=== PATIENT | female | born 1970 | race African-American/Black ===

== ENCOUNTER 2017-02-10 11:22 | Inpatient (IN) | payer OTHER ==
[2017-02-10 12:24] VITALS: BMI 18.4
--- NOTE | 2017-02-10 16:35 | HP ---
CIWA Score - CIWA Score Nausea/Vomitin Muscle Tremors: 3 Anxiety: 3 Agitation: 2 Paroxysmal Sweats: 2 Orientation: 0-Oriented Tacttile Disturbances: 2-Mild Itch/Numbness/Burn Auditory Disturbances: 2-Mild Harshness/Frighten Visual Disturbances: 2-Mild Sensitivity Headache: 2-Mild CIWA-Ar Total Score: 21 Admission ROS BHS - HPI Chief Complaint: i am here to stop drinking alcohol and cocaine Allergies/Adverse Reactions: Allergies Allergy/AdvReac Type Severity Reaction Status Date / Time egg [Egg] Allergy Mild Rash Verified 02/10/17 16:21 History of Present Illness: this 46 ears old female with alcohol and cocaine dependence,seeking help for datox,last treatment [facility] 01/16/16 to 01/20/16 mmtp 60 mgs/day,last medicated to day multiples admissions in detox,keep relapsing multiple medical problem,hypercholesterolemia,hepatitis c,nicotine dependence, depression,derrell,bronchitis,arthritis of left knee Exam Limitations: No Limitations - Ebola screening Have you traveled outside of the country in the last 21 days: No Have you had contact with anyone from an Ebola affected area: No Have you been sick,other than usual withdrawal symptoms: No Do you have a fever: No - Review of Systems Constitutional: Loss of Appetite, Malaise, Night Sweats, Changes in sleep, Weakness, Unintentional Wgt. Loss EENT: reports: Nose Congestion Respiratory: reports: No Symptoms reported, Other (asthma bronchitis) Cardiac: reports: No Symptoms Reported GI: reports: Diarrhea, Nausea, Vomiting, Abdominal cramping : reports: No Symptoms Reported Musculoskeletal: reports: Back Pain, Muscle Pain Integumentary: reports: Dryness Neuro: reports: Headache, Tremors Endocrine: reports: No Symptoms Reported Hematology: reports: No Symptoms Reported Psychiatric: reports: Depressed Patient History - Patient Medical History Hx Anemia: No Hx Asthma: Yes (on albuterol inhaler) Hx Chronic Obstructive Pulmonary Disease (COPD): No Hx Cancer: No Hx Cardiac Disorders: No Hx Congestive Heart Failure: No Hx Hypertension: No Hx Hypercholesterolemia: No Hx Pacemaker: No HX Cerebrovascular Accident: No Hx Seizures: No Hx Dementia: No Hx Diabetes: No Hx Gastrointestinal Disorders: No Hx Liver Disease: No Hx Genitourinary Disorders: No Hx Sexually Transmitted Disorders: No Hx Renal Disease (ESRD): No Hx Thyroid Disease: No Hx Human Immunodeficiency Virus (HIV): No Hx Hepatitis C: Yes Hx Depression: Yes (no medication) Hx Suicide Attempt: No Hx Bipolar Disorder: No Hx Schizophrenia: No Other Medical History: no suicidal,no homicidal - Patient Surgical History Past Surgical History: Yes Hx Neurologic Surgery: No Hx Cataract Extraction: No Hx Cardiac Surgery: No Hx Lung Surgery: No Hx Breast Surgery: No Hx Breast Biopsy: No Hx Abdominal Surgery: No Hx Appendectomy: No Hx Cholecystectomy: No Hx Genitourinary Surgery: No Hx Section: No Hx Orthopedic Surgery: No Other Surgical History: BILATERAL INGUINAL HERNIA SX..1982 & 1988 Anesthesia Reaction: No - PPD History Previous Implant?: Yes Documented Results: Negative w/o proof Date: 01/18/16 PPD to be Administered?: Yes - Reproductive History Patient is a Female of Child Bearing Age (11 -55 yrs old): Yes Last Menstrual Period: 11/06/10 Patient : No - Smoking Cessation Smoking history: Current every day smoker Have you smoked in the past 12 months: Yes Aproximately how many cigarettes per day: 10 Hx Chewing Tobacco Use: No Initiated information on smoking cessation: Yes 'Breaking Loose' booklet given: 02/10/17 - Substance & Tx. History Hx Alcohol Use: Yes Hx Substance Use: Yes Substance Use Type: Alcohol, Cocaine Hx Substance Use Treatment: Yes ([facility] 01/16/16 to 01/20/16) - Substances Abused Alcohol Route: Oral Frequency: Daily Amount used: 6 cans of four loco Age of first use: 46 Date of Last Use: 02/10/17 Cocaine Route: Smoking Frequency: Daily Amount used: $200-300 Age of first use: 23 Date of Last Use: 02/09/17 Family Disease History - Family Disease History Family History: Denies Admission Physical Exam S - Vital Signs Vital Signs: Vital Signs - 24 hr 02/10/17 12:21 Temperature 96 F L Pulse Rate 54 L Respiratory 20 Rate Blood Pressure 128/76 - Physical General Appearance: Yes: Moderate Distress, Tremorous, Irritable, Sweating, Anxious HEENTM: Yes: Normocephalic, GREGORY, Pharynx Normal Respiratory: Yes: Lungs Clear, Normal Breath Sounds, No Respiratory Distress Neck: Yes: Within Normal Limits, Supple, Trachea in good position Breast: Yes: Breast Exam Deferred Cardiology: Yes: Within Normal Limits, Regular Rhythm, Regular Rate, S1, S2 Abdominal: Yes: Within Normal Limits, Normal Bowel Sounds, Non Tender, Flat, Soft Genitourinary: Yes: Within Normal Limits Back: Yes: Muscle Spasm Musculoskeletal: Yes: Back pain, Muscle Pain Extremities: Yes: Normal Inspection, Normal Range of Motion, Tremors 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, Fully Oriented, Alert, Motor Strength 5/5 Integumentary: Yes: Dry Lymphatic: Yes: Within Normal Limits - Diagnostic (1) Cocaine dependence Current Visit: No Status: Acute Qualifiers: Substance use status: uncomplicated Qualified Code(s): F14.20 - Cocaine dependence, uncomplicated (2) Alcohol dependence with uncomplicated withdrawal Current Visit: No Status: Chronic (3) Asthma Current Visit: No Status: Chronic Qualifiers: Asthma severity: mild intermittent Asthma complication type: uncomplicated Qualified Code(s): J45.20 - Mild intermittent asthma, uncomplicated (4) Hepatitis C Current Visit: No Status: Chronic Qualifiers: Viral hepatitis chronicity: chronic Hepatic coma status: without hepatic coma Qualified Code(s): B18.2 - Chronic viral hepatitis C (5) Methadone maintenance therapy patient Current Visit: No Status: Chronic Comment: 60mg HELP MMTP (6) Nicotine dependence Current Visit: No Status: Chronic Qualifiers: Nicotine product type: cigarettes Substance use status: uncomplicated Qualified Code(s): F17.210 - Nicotine dependence, cigarettes, uncomplicated (7) Weight loss Current Visit: Yes Status: Acute (8) Low back pain Current Visit: Yes Status: Acute (9) Arthritis of left knee Current Visit: Yes Status: Acute (10) Syncope Current Visit: Yes Status: Acute Cleared for Admission [facility] - Detox or Rehab [facility] Level of Care: Medically Managed Detox Regimen/Protocol: Librium [facility] Breath Alcohol Content Breath Alcohol Content: 0 Urine Pregancy Test - Result Urine Test Results: Negative- NO Line Present Urine Drug Screen - Results Drug Screen Negative: No Urine Drug Screen Results: MARIA VICTORIA-Cocaine, MTD-Methadone
[2017-02-10] MEDS ORDERED: MAGNESIUM CITRATE 300 ML BOTTLE PO PRN (16:49)
[2017-02-10] MEDS ORDERED: IBUPROFEN 400 MG TABLET (FP) PO PRN (16:49)
[2017-02-10] MEDS ORDERED: MENTHOL/PHENOL 1 EACH UD MM PRN (16:49)
[2017-02-10] MEDS ORDERED: diphenhydrAMINE HCL 50 MG CAPSULE PO PRN (16:49)
[2017-02-10] MEDS ORDERED: chlordiazePOXIDE HCL 25 MG CAPSULE PO PRN (16:49)
[2017-02-10] MEDS ORDERED: MAGNESIUM HYDROX 2400MG/30ML ORAL SUSPENSION 30 ML CUP PO PRN (16:49)
[2017-02-10] MEDS ORDERED: P-EPHED 60MG/TRIPROLIDI 2.5MG TABLET PO PRN (16:49)
[2017-02-10] MEDS ORDERED: hydrOXYzine PAMOATE 25 MG CAPSULE (FP) PO PRN (16:49)
[2017-02-10] MEDS ORDERED: guaiFENesin/D-METHORPHAN HB 10 ML UNIT-DOSE CUPS PO PRN (16:49)
[2017-02-10] MEDS ORDERED: ACETAMINOPHEN 325 MG TABLET (FP) PO PRN (16:49)
[2017-02-10] MEDS ORDERED: MAG HYDROX/AL HYDROX/SIMETH 30 ML UNIT-DOSE CUP PO PRN (16:49)
[2017-02-10] MEDS ORDERED: chlordiazePOXIDE HCL 25 MG CAPSULE PO ONE (16:49)
[2017-02-10] MEDS ORDERED: LOPERAMIDE HCL 2 MG CAPSULE PO PRN (16:49)
[2017-02-10] MEDS ORDERED: ALBUTEROL SO4 6.7 GM HFA INHALER IH PRN (17:00)
[2017-02-10] MEDS: NICOTINE 21 MG/24 HOURS TOPICAL PATCH TD SCH (18:41)
[2017-02-10 22:14] LABS: URINE APPEARANCE SLCLOUDY; URINE BILIRUBIN NEGATIVE (NEGATIVE); URINE BLOOD NEGATIVE (NEGATIVE); URINE COLOR AMBER; URINE GLUCOSE (UA) NEGATIVE (NEGATIVE); URINE KETONE NEGATIVE (NEGATIVE); URINE NITRITE NEGATIVE (NEGATIVE); URINE UROBILINOGEN NEGATIVE mg/dL (0.2-1.0)
[2017-02-10 22:19] LABS: URINE LEUK ESTERASE 1+ (NEGATIVE); URINE PROTEIN 1+ (NEGATIVE)
[2017-02-10 22:35] LABS: URINE BACTERIA MANY /hpf (NONE SEEN); URINE MUCUS MANY; URINE RBC 2 /hpf (0-3); URINE WBC 17 /hpf (3-5)
[2017-02-10] MEDS: THIAMINE HCL 100 MG TABLET (FP) PO SCH (22:55)
[2017-02-10] MEDS: chlordiazePOXIDE HCL 25 MG CAPSULE PO SCH (22:55)
[2017-02-11] MEDS: chlordiazePOXIDE HCL 25 MG CAPSULE PO SCH ×4 (07:07→22:42)
[2017-02-11] MEDS ORDERED: METHADONE HCL 40 MG DISPERSABLE TABLET PO SCH (08:30)
[2017-02-11] MEDS ORDERED: METHADONE PO SCH (09:45)
[2017-02-11] MEDS ORDERED: METHADONE HCL 40 MG DISPERSABLE TABLET ONE ×2 (09:46→10:59)
[2017-02-11 10:06] LABS: MCH 29.8 pg (25.7-33.7); MCHC 32.9 g/dl (32.0-36.0); MEAN CELL VOLUME 90.7 fl (80-96); MEAN PLT VOLUME 8.7 fl (7.5-11.1); PLATELET COUNT 231 K/MM3 (134-434); RDW 13.8 % (11.6-15.6); WHITE BLOOD COUNT 4.5 K/mm3 (4.0-10.0)
[2017-02-11 10:32] LABS: ALK PHOS 86 U/L (45-117); ANION GAP 6 (8-16); BILIRUBIN,TOTAL 0.5 mg/dL (0.2-1.0); CALCIUM 8.8 mg/dL (8.5-10.1); CO2 29 mmol/L (21-32); CREATININE 0.7 mg/dL (0.55-1.02); GLUCOSE,RANDOM 80 mg/dL (74-106); SGOT/AST 13 U/L (15-37); SGPT/ALT 19 U/L (12-78); TOT PROT 6.6 g/dl (6.4-8.2)
[2017-02-11] MEDS ORDERED: METHADONE HCL 10 MG TABLET ONE (11:00)
[2017-02-11] MEDS: METHADONE 20 MG, METHADONE 40 MG PO SCH (11:13)
[2017-02-11] MEDS: NICOTINE 21 MG/24 HOURS TOPICAL PATCH TD SCH (11:13)
[2017-02-11] MEDS: PRENATAL VITAMINS W/ FOLIC ACID TABLET (FP) PO SCH (11:13)
--- NOTE | 2017-02-11 14:39 | PN ---
[facility] CIWA - CIWA Score Nausea/Vomitin Muscle Tremors: 3 Anxiety: 2 Agitation: 3 Paroxysmal Sweats: 1-Minimal Palms Moist Orientation: 0-Oriented Tacttile Disturbances: 1-Very Mild Itch/Numbness Auditory Disturbances: 1-Very Mild Visual Disturbances: 1-Very Mild Sensitivity Headache: 2-Mild CIWA-Ar Total Score: 17 BHS Progress Note (SOAP) Subjective: ALERT IRRITABLE,ANXIOUS,INTERRUPTED SLEEP,TREMOR Objective: 02/11/17 14:37 Vital Signs Temperature 97.3 F L 02/11/17 10:12 Pulse Rate 70 02/11/17 10:12 Respiratory Rate 18 02/11/17 10:12 Blood Pressure 106/73 02/11/17 10:12 O2 Sat by Pulse Oximetry (%) EKG SINUS BRADYCARDIA 51/MIN 02/11/17 14:38 Laboratory Last Values WBC 4.5 K/mm3 (4.0-10.0) D 02/11/17 08:00 RBC 4.17 M/mm3 (3.60-5.2) D 02/11/17 08:00 Hgb 12.4 GM/dL (10.7-15.3) D 02/11/17 08:00 Hct 37.8 % (32.4-45.2) D 02/11/17 08:00 MCV 90.7 fl (80-96) 02/11/17 08:00 MCH 29.8 pg (25.7-33.7) 02/11/17 08:00 MCHC 32.9 g/dl (32.0-36.0) 02/11/17 08:00 RDW 13.8 % (11.6-15.6) 02/11/17 08:00 Plt Count 231 K/MM3 (134-434) 02/11/17 08:00 MPV 8.7 fl (7.5-11.1) D 02/11/17 08:00 Sodium 141 mmol/L (136-145) 02/11/17 08:00 Potassium 3.9 mmol/L (3.5-5.1) 02/11/17 08:00 Chloride 106 mmol/L (98-107) 02/11/17 08:00 Carbon Dioxide 29 mmol/L (21-32) 02/11/17 08:00 Anion Gap 6 (8-16) L 02/11/17 08:00 BUN 20 mg/dL (7-18) H 02/11/17 08:00 Creatinine 0.7 mg/dL (0.55-1.02) 02/11/17 08:00 Creat Clearance w eGFR > 60 (>60) 02/11/17 08:00 Random Glucose 80 mg/dL (74-106) 02/11/17 08:00 Calcium 8.8 mg/dL (8.5-10.1) 02/11/17 08:00 Total Bilirubin 0.5 mg/dL (0.2-1.0) D 02/11/17 08:00 AST 13 U/L (15-37) L 02/11/17 08:00 ALT 19 U/L (12-78) 02/11/17 08:00 Alkaline Phosphatase 86 U/L (45-117) D 02/11/17 08:00 Total Protein 6.6 g/dl (6.4-8.2) 02/11/17 08:00 Albumin 3.0 g/dl (3.4-5.0) L 02/11/17 08:00 Urine Color Nohemy 02/10/17 21:45 Urine Appearance Slcloudy 02/10/17 21:45 Urine pH 5.0 (5.0-8.0) 02/10/17 21:45 Ur Specific [place] >= 1.030 (1.005-1.025) H 02/10/17 21:45 Urine Protein 1+ (NEGATIVE) H 02/10/17 21:45 Urine Glucose (UA) Negative (NEGATIVE) 02/10/17 21:45 Urine Ketones Negative (NEGATIVE) 02/10/17 21:45 Urine Blood Negative (NEGATIVE) 02/10/17 21:45 Urine Nitrite Negative (NEGATIVE) 02/10/17 21:45 Urine Bilirubin Negative (NEGATIVE) 02/10/17 21:45 Urine Urobilinogen Negative mg/dL (0.2-1.0) 02/10/17 21:45 Ur Leukocyte Esterase 1+ (NEGATIVE) H 02/10/17 21:45 Urine RBC 2 /hpf (0-3) 02/10/17 21:45 Urine WBC 17 /hpf (3-5) 02/10/17 21:45 Ur Epithelial Cells Rare /hpf (FEW) 02/10/17 21:45 Urine Bacteria Many /hpf (NONE SEEN) 02/10/17 21:45 Urine Mucus Many 02/10/17 21:45 RPR Titer Nonreactive (NONREACTIVE) 02/11/17 08:00 Assessment: 02/11/17 14:38 WITHDRAWAL SYMPTOM Plan: CONTINUE DETOX
--- NOTE | 2017-02-11 15:54 | CONSULT ---
[facility] Psychiatric Consult - Data Date of interview: 02/11/17 Admission source: [facility] Identifying data: Another admission to [facility] for this 46 y/o AA female seeking detox treatment on for alcohol,heroin and cocaine dependence.Patient is ,a mother of five (variable account),domiciled, unemployed,deprived of any official means of financial support and supported on " hustling " as per self-report. Substance Abuse History: Discussed with patient.Ms June confirms all details of this [facility] report : Smoking Cessation. Smoking history: Current every day smoker. Have you smoked in the past 12 months: Yes. Aproximately how many cigarettes per day: 10. Hx Chewing Tobacco Use: No. Initiated information on smoking cessation: Yes. 'Breaking Loose' booklet given: 02/10/17. - Substance & Tx. History. Hx Alcohol Use: Yes. Hx Substance Use: Yes. Substance Use Type : Alcohol, Cocaine. Hx Substance Use Treatment: Yes ([facility] 01/16/16 to 01/20/16) . - Substances Abused. Alcohol. Route: Oral. Frequency: Daily. Amount used: 6 cans of four loco. Age of first use: 46. Date of Last Use: 02/10/17. Cocaine. Route: Smoking. Frequency: Daily. Amount used: $200-300. Age of first use: 23. Date of Last Use: 02/09/17 Medical History: Significant for COPD,bronchial asthma and hepatitis C.Noted history of surgery for bilateral inguinal hernia (1982 + 1988). Psychiatric History: Unreliable and versatile historian.In this interview,the patient denies past history of psychiatric hospitalizations.Last year however, she had reported to the same group underwriter that she " was committed to [facility],years ago,for erratic behavior in the streets described as flashing people ".It appears that Ms June was in a state of intoxication at the time.Never rehospitalized since the incident.No OPD care.Patient endorses one suicide attempt via overdose with pills (more than 10 years ago).She is still on methadone maintenance (60 mg/day). Physical/Sexual Abuse/Trauma History: Patient denies history of abuse. Additional Comment: Urine Drug Screen Results: MARIA VICTORIA-Cocaine, MTD-Methadone.Noted. Mental Status Exam - Mental Status Exam Alert and Oriented to: Time, Place, Person Cognitive Function: Grossly Intact Patient Appearance: Unkempt, Disheveled Mood: Nervous, Withdrawn Affect: Mood Congruent Patient Behavior: Sedated (moderately), Fatigued, Cooperative Speech Pattern: Delayed, Slurred Voice Loudness: Moderately Soft/Quiet Thought Process: Goal Oriented Thought Disorder: Not Present Hallucinations: Denies Suicidal Ideation: Denies Homicidal Ideation: Denies Insight/Judgement: Poor Sleep: Fair Appetite: Good Muscle strength/Tone: Normal Gait/Station: Normal Psychiatric Findings - Problem List ([place] 1, 2,3) (1) Alcohol dependence with uncomplicated withdrawal Current Visit: Yes Status: Chronic (2) Opioid dependence on agonist therapy Current Visit: Yes Status: Acute (3) Cocaine dependence Current Visit: Yes Status: Acute Qualifiers: Substance use status: uncomplicated Qualified Code(s): F14.20 - Cocaine dependence, uncomplicated (4) Nicotine dependence Current Visit: Yes Status: Acute Qualifiers: Nicotine product type: cigarettes Substance use status: uncomplicated Qualified Code(s): F17.210 - Nicotine dependence, cigarettes, uncomplicated (5) Substance induced mood disorder Current Visit: Yes Status: Acute (6) Arthritis of left knee Current Visit: Yes Status: Chronic (7) Low back pain Current Visit: Yes Status: Chronic (8) Weight loss Current Visit: Yes Status: Chronic (9) Asthma Current Visit: Yes Status: Chronic Qualifiers: Asthma severity: mild intermittent Asthma complication type: uncomplicated Qualified Code(s): J45.20 - Mild intermittent asthma, uncomplicated (10) Hepatitis C Current Visit: No Status: Chronic Qualifiers: Viral hepatitis chronicity: chronic Hepatic coma status: without hepatic coma Qualified Code(s): B18.2 - Chronic viral hepatitis C - Initial Treatment Plan Initial Treatment Plan: Psychoeducation.Detoxification.Observation.
[2017-02-11] MEDS: THIAMINE HCL 100 MG TABLET (FP) PO SCH (22:42)
[2017-02-12] MEDS ORDERED: METHADONE HCL 10 MG TABLET ONE (05:30)
[2017-02-12] MEDS ORDERED: METHADONE HCL 40 MG DISPERSABLE TABLET ONE (05:30)
[2017-02-12] MEDS: chlordiazePOXIDE HCL 25 MG CAPSULE PO SCH ×3 (06:37→17:56)
[2017-02-12] MEDS: METHADONE 20 MG, METHADONE 40 MG PO SCH (06:37)
[2017-02-12] MEDS: PRENATAL VITAMINS W/ FOLIC ACID TABLET (FP) PO SCH (10:40)
[2017-02-12] MEDS: NICOTINE 21 MG/24 HOURS TOPICAL PATCH TD SCH (10:40)
--- NOTE | 2017-02-12 14:12 | PN ---
S CIWA - CIWA Score Nausea/Vomitin Muscle Tremors: 3 Anxiety: 3 Agitation: 2 Paroxysmal Sweats: 1-Minimal Palms Moist Orientation: 0-Oriented Tacttile Disturbances: 1-Very Mild Itch/Numbness Auditory Disturbances: 1-Very Mild Visual Disturbances: 1-Very Mild Sensitivity Headache: 2-Mild CIWA-Ar Total Score: 17 S Progress Note (SOAP) Subjective: ALERT,IRRITABLE,ANXIOUS,INTERRUPTED SLEEP,TREMOR Objective: 02/12/17 14:09 Vital Signs Temperature 97.2 F L 02/12/17 10:47 Pulse Rate 62 02/12/17 10:47 Respiratory Rate 16 02/12/17 10:47 Blood Pressure 99/67 02/12/17 10:47 O2 Sat by Pulse Oximetry (%) Laboratory Last Values WBC 4.5 K/mm3 (4.0-10.0) D 02/11/17 08:00 RBC 4.17 M/mm3 (3.60-5.2) D 02/11/17 08:00 Hgb 12.4 GM/dL (10.7-15.3) D 02/11/17 08:00 Hct 37.8 % (32.4-45.2) D 02/11/17 08:00 MCV 90.7 fl (80-96) 02/11/17 08:00 MCH 29.8 pg (25.7-33.7) 02/11/17 08:00 MCHC 32.9 g/dl (32.0-36.0) 02/11/17 08:00 RDW 13.8 % (11.6-15.6) 02/11/17 08:00 Plt Count 231 K/MM3 (134-434) 02/11/17 08:00 MPV 8.7 fl (7.5-11.1) D 02/11/17 08:00 Sodium 141 mmol/L (136-145) 02/11/17 08:00 Potassium 3.9 mmol/L (3.5-5.1) 02/11/17 08:00 Chloride 106 mmol/L (98-107) 02/11/17 08:00 Carbon Dioxide 29 mmol/L (21-32) 02/11/17 08:00 Anion Gap 6 (8-16) L 02/11/17 08:00 BUN 20 mg/dL (7-18) H 02/11/17 08:00 Creatinine 0.7 mg/dL (0.55-1.02) 02/11/17 08:00 Creat Clearance w eGFR > 60 (>60) 02/11/17 08:00 Random Glucose 80 mg/dL (74-106) 02/11/17 08:00 Calcium 8.8 mg/dL (8.5-10.1) 02/11/17 08:00 Total Bilirubin 0.5 mg/dL (0.2-1.0) D 02/11/17 08:00 AST 13 U/L (15-37) L 02/11/17 08:00 ALT 19 U/L (12-78) 02/11/17 08:00 Alkaline Phosphatase 86 U/L (45-117) D 02/11/17 08:00 Total Protein 6.6 g/dl (6.4-8.2) 02/11/17 08:00 Albumin 3.0 g/dl (3.4-5.0) L 02/11/17 08:00 Urine Color Nohemy 02/10/17 21:45 Urine Appearance Slcloudy 02/10/17 21:45 Urine pH 5.0 (5.0-8.0) 02/10/17 21:45 Ur Specific [place] >= 1.030 (1.005-1.025) H 02/10/17 21:45 Urine Protein 1+ (NEGATIVE) H 02/10/17 21:45 Urine Glucose (UA) Negative (NEGATIVE) 02/10/17 21:45 Urine Ketones Negative (NEGATIVE) 02/10/17 21:45 Urine Blood Negative (NEGATIVE) 02/10/17 21:45 Urine Nitrite Negative (NEGATIVE) 02/10/17 21:45 Urine Bilirubin Negative (NEGATIVE) 02/10/17 21:45 Urine Urobilinogen Negative mg/dL (0.2-1.0) 02/10/17 21:45 Ur Leukocyte Esterase 1+ (NEGATIVE) H 02/10/17 21:45 Urine RBC 2 /hpf (0-3) 02/10/17 21:45 Urine WBC 17 /hpf (3-5) 02/10/17 21:45 Ur Epithelial Cells Rare /hpf (FEW) 02/10/17 21:45 Urine Bacteria Many /hpf (NONE SEEN) 02/10/17 21:45 Urine Mucus Many 02/10/17 21:45 RPR Titer Nonreactive (NONREACTIVE) 02/11/17 08:00 Assessment: 02/12/17 14:11 WITHDRAWAL SYMPTOM Plan: CONTINUE DETOX
[2017-02-12] MEDS: chlordiazePOXIDE 5 MG CAPSULE PO SCH (22:50)
[2017-02-12] MEDS: THIAMINE HCL 100 MG TABLET (FP) PO SCH (22:50)
[2017-02-13] MEDS ORDERED: METHADONE HCL 40 MG DISPERSABLE TABLET ONE (05:03)
[2017-02-13] MEDS ORDERED: METHADONE HCL 10 MG TABLET ONE (05:03)
[2017-02-13] MEDS: chlordiazePOXIDE 5 MG CAPSULE PO SCH ×3 (05:31→17:51)
[2017-02-13] MEDS: METHADONE 20 MG, METHADONE 40 MG PO SCH (05:31)
[2017-02-13] MEDS: PRENATAL VITAMINS W/ FOLIC ACID TABLET (FP) PO SCH (10:54)
[2017-02-13] MEDS: NICOTINE 21 MG/24 HOURS TOPICAL PATCH TD SCH (10:55)
--- NOTE | 2017-02-13 11:33 | PN ---
BHS Progress Note (SOAP) Subjective: feeling better interrupted sleep little anxious Objective: 02/13/17 11:32 Vital Signs Temperature 97.2 F L 02/13/17 10:00 Pulse Rate 76 02/13/17 10:00 Respiratory Rate 19 02/13/17 10:00 Blood Pressure 119/76 02/13/17 10:00 O2 Sat by Pulse Oximetry (%) awake/alert ambulating no acute distress Assessment: 02/13/17 11:33 withdrawal sx Plan: continue detox increase fluids d/c in am
[2017-02-13] MEDS: THIAMINE HCL 100 MG TABLET (FP) PO SCH (22:29)
[2017-02-13] MEDS: chlordiazePOXIDE HCL 10 MG CAPSULE PO SCH (22:29)
[2017-02-14] MEDS ORDERED: METHADONE HCL 10 MG TABLET ONE (04:23)
[2017-02-14] MEDS ORDERED: METHADONE HCL 40 MG DISPERSABLE TABLET ONE (04:23)
[2017-02-14] MEDS: METHADONE 20 MG, METHADONE 40 MG PO SCH (06:01)
[2017-02-14] MEDS: chlordiazePOXIDE HCL 10 MG CAPSULE PO SCH ×2 (06:03→10:54)
--- NOTE | 2017-02-14 09:06 | DS ---
[facility] Detox Discharge Summary Admission Date: 02/10/17 Discharge Date: 02/14/17 - History Present History: Alcohol Dependence, Cannabis Dependence, Cocaine Dependence, MMTP - Physical Exam Results Vital Signs: Vital Signs Temperature 96.4 F L 02/14/17 06:00 Pulse Rate 64 02/14/17 06:00 Respiratory Rate 16 02/14/17 06:00 Blood Pressure 105/74 02/14/17 06:00 O2 Sat by Pulse Oximetry (%) - Treatment Hospital Course: Detox Protocol Followed, Detoxed Safely, Responded well, Discharged Condition Good, Rehab Referral Accepted - Medication Discharge Medications: Ambulatory Orders NK [No Known Home Medication] 02/10/17 - Diagnosis (1) Cocaine dependence Current Visit: Yes Status: Chronic Qualifiers: Substance use status: uncomplicated Qualified Code(s): F14.20 - Cocaine dependence, uncomplicated (2) Nicotine dependence Current Visit: Yes Status: Chronic Qualifiers: Nicotine product type: cigarettes Substance use status: uncomplicated Qualified Code(s): F17.210 - Nicotine dependence, cigarettes, uncomplicated (3) Opioid dependence on agonist therapy Current Visit: Yes Status: Acute (4) Substance induced mood disorder Current Visit: Yes Status: Chronic (5) Syncope Current Visit: Yes Status: Inactive (6) Alcohol dependence with uncomplicated withdrawal Current Visit: Yes Status: Chronic (7) Arthritis of left knee Current Visit: Yes Status: Chronic (8) Asthma Current Visit: Yes Status: Chronic Qualifiers: Asthma severity: mild intermittent Asthma complication type: uncomplicated Qualified Code(s): J45.20 - Mild intermittent asthma, uncomplicated (9) Low back pain Current Visit: Yes Status: Chronic Qualifiers: Back pain laterality: unspecified (10) Weight loss Current Visit: Yes Status: Chronic (11) Cannabis dependence Current Visit: No Status: Chronic (12) Hepatitis C Current Visit: No Status: Chronic Qualifiers: Viral hepatitis chronicity: chronic Hepatic coma status: without hepatic coma Qualified Code(s): B18.2 - Chronic viral hepatitis C (13) Methadone maintenance therapy patient Current Visit: Yes Status: Chronic (14) PCP dependence Current Visit: Yes Status: Chronic - AMA Did Patient Leave Against Medical Advice: No
[2017-02-14] MEDS: NICOTINE 21 MG/24 HOURS TOPICAL PATCH TD SCH (10:54)
[2017-02-14] MEDS: PRENATAL VITAMINS W/ FOLIC ACID TABLET (FP) PO SCH (10:54)
[2017-02-14 14:22] VITALS: BP 100/69; PULSE 73; TEMP 98.1
--- NOTE | 2017-02-15 14:55 | EKG ---
Test Reason : Blood Pressure : / mmHG Vent. Rate : 051 BPM Atrial Rate : 051 BPM P-R Int : 128 ms QRS Dur : 076 ms QT Int : 510 ms P-R-T Axes : -18 083 077 degrees QTc Int : 470 ms SINUS BRADYCARDIA WITH PREMATURE ATRIAL COMPLEXES SEPTAL INFARCT , AGE UNDETERMINED ABNORMAL ECG NO PREVIOUS ECGS AVAILABLE Confirmed by KILEY REYNOLDS MD ([id number]) on 02/15/2017 2:54:54 PM Referred By: Micah Ponce Confirmed By:KILEY REYNOLDS MD
== END 2017-02-14 02:10 | disposition other institution (70) | DRG 773 ==
LOC: YASAS 11:22 → Y6N 17:03
PROVIDERS: ADMIT Internal Medicine; ATTEND Internal Medicine
PROC: HZ2ZZZZ Detoxification Services for Substance Abuse Treatment (ICD-10-PCS; principal; 2017-02-10)
DX: F10.230 Alcohol dependence with withdrawal, uncomplicated (principal); F11.20 Opioid dependence, uncomplicated; F14.20 Cocaine dependence, uncomplicated; F17.210 Nicotine dependence, cigarettes, uncomplicated; F19.24 Other psychoactive substance dependence with psychoactive substance-induced mood disorder; B18.2 Chronic viral hepatitis C; J45.20 Mild intermittent asthma, uncomplicated; M13.862 Other specified arthritis, left knee; R00.1 Bradycardia, unspecified; Z86.79 Personal history of other diseases of the circulatory system; Z87.898 Personal history of other specified conditions
CPT/HCPCS: 36415; 80053; 81003; 81015; 85027; 86593; 93005; 93010

== ENCOUNTER 2017-02-14 14:32 | Inpatient (IN) | payer OTHER ==
[2017-02-14] MEDS ORDERED: PNEUMOC 13-VAL CONJ-DIP CRM/PF 0.5 ML DISP.SYRIN IM ONE (14:56)
[2017-02-14 14:58] VITALS: BMI 21.0
[2017-02-14] MEDS ORDERED: MENTHOL/PHENOL 1 EACH UD MM PRN (15:07)
[2017-02-14] MEDS ORDERED: LOPERAMIDE HCL 2 MG CAPSULE PO PRN (15:07)
[2017-02-14] MEDS ORDERED: MAGNESIUM CITRATE 300 ML BOTTLE PO PRN (15:07)
[2017-02-14] MEDS ORDERED: IBUPROFEN 400 MG TABLET (FP) PO PRN (15:07)
[2017-02-14] MEDS ORDERED: P-EPHED 60MG/TRIPROLIDI 2.5MG TABLET PO PRN (15:07)
[2017-02-14] MEDS ORDERED: MAG HYDROX/AL HYDROX/SIMETH 30 ML UNIT-DOSE CUP PO PRN (15:07)
[2017-02-14] MEDS ORDERED: ACETAMINOPHEN 325 MG TABLET (FP) PO PRN (15:07)
[2017-02-14] MEDS ORDERED: MAGNESIUM HYDROX 2400MG/30ML ORAL SUSPENSION 30 ML CUP PO PRN (15:07)
[2017-02-14] MEDS ORDERED: guaiFENesin/D-METHORPHAN HB 10 ML UNIT-DOSE CUPS PO PRN (15:07)
[2017-02-14] MEDS ORDERED: NICOTINE POLACRILEX 2 MG GUM BUC PRN (15:07)
--- NOTE | 2017-02-14 15:10 | HP ---
[facility] Re[facility] Assess/Revision - Admission History Admitted to Rehab from: [facility] [place] Date of Admission to Rehab: 02/14/17 - Vital signs Vital Signs: Vital Signs Period Temp Pulse Resp BP Sys/[place] Pulse Ox Last 24 Hr 97.5 F-97.5 F 65-65 18-18 104-104/69-69 - Findings Detox History & Physical reviewed: Yes Concur with findings: Yes
[2017-02-14] MEDS: diphenhydrAMINE HCL 50 MG CAPSULE PO PRN (21:30)
[2017-02-14] MEDS: THIAMINE HCL 100 MG TABLET (FP) PO SCH (21:30)
[2017-02-15] MEDS ORDERED: METHADONE HCL 10 MG TABLET ONE (05:59)
[2017-02-15] MEDS ORDERED: METHADONE HCL 40 MG DISPERSABLE TABLET ONE (05:59)
[2017-02-15] MEDS ORDERED: METHADONE HCL 10 MG TABLET PO SCH (06:00)
[2017-02-15] MEDS: METHADONE 40 MG, METHADONE 20 MG PO SCH (06:47)
[2017-02-15] MEDS: NICOTINE 21 MG/24 HOURS TOPICAL PATCH TD SCH (10:04)
[2017-02-15] MEDS: PRENATAL VITAMINS W/ FOLIC ACID TABLET (FP) PO SCH (10:05)
[2017-02-15] MEDS ORDERED: PNEUMOCOCCAL 23 VACCINE 0.5 ML VIAL IM ONE (12:00)
--- NOTE | 2017-02-15 14:28 | HP ---
Psychiatrist Admission - Data Date of interview: 02/15/17 Admission source: [address] [place] [address] Identifying data: This is the first admission to [address] [place] [address] for this 46 years old AA female mother of 5(children reside with the patient's family members).She is undomiciled,no financial support. Medical History: Significant for BA,Hep C. Psychiatric History: Patient reports depressed mood since very young age.One psychiatric hospitalization many years back due to errratic behavior on street.patient has recollection of the details,most probably as a consequences of drug use. Also reports one suicidal attempt about 10 years ago.No psychiatric follow up,currently on MMTP(60 mg daily).Reports sleeping difficulties on off,responded well to Seroquel in the past . Physical/Sexual Abuse/Trauma History: denies Vital Signs: Vital Signs - 24 hr 02/14/17 02/14/17 02/15/17 14:41 14:56 00:30 Temperature 97.5 F L 97.5 F L Pulse Rate 65 65 Respiratory 18 18 16 Rate Blood Pressure 104/69 104/69 02/15/17 07:09 Temperature 97.4 F L Pulse Rate 64 Respiratory 18 Rate Blood Pressure 115/68 Allergies/Adverse Reactions: Allergies Allergy/AdvReac Type Severity Reaction Status Date / Time egg [Egg] Allergy Mild Rash Verified 02/10/17 16:21 Date of last physical exam: 02/10/17 Concur with the findings of this exam: Yes - Substance Abuse/Tx History Hx Alcohol Use: Yes (drinking since 13 to,2 bottles of rum,beer six 24 oz can) Hx Substance Use: Yes (cocaine since 18 yo.$200,PCP since 24 yo,1 bag daily, cocaine since 18 yo,) Substance Use Type: Alcohol, Cocaine (cocaine $ 200 daily), Heroin (since 25 yo, 2 bags daily), Marijuana (marijuana since 13 yo) Hx Substance Use Treatment: Yes (longest abstinence 6 years) - Admission Criteria Previous failed treatment: Yes Poor recovery environment: Yes Comorbidities: Yes Lacks judgement: Yes Mental Status Exam - Mental Status Exam Alert and Oriented to: Time, Place, Person Cognitive Function: Grossly Intact Patient Appearance: Well Groomed Mood: Anxious Affect: Mood Congruent, Labile Patient Behavior: Cooperative Speech Pattern: Clear Voice Loudness: Normal Thought Process: Goal Oriented Thought Disorder: Not Present Hallucinations: Denies Suicidal Ideation: Denies Insight/Judgement: Fair Sleep: Fair Appetite: Good Muscle strength/Tone: Normal Gait/Station: Normal Psychiatric Findings - Problem List ([place] 1, 2,3) (1) Opioid dependence on agonist therapy Current Visit: Yes Status: Chronic (2) Arthritis of left knee Current Visit: Yes Status: Chronic (3) Asthma Current Visit: Yes Status: Chronic Qualifiers: Asthma severity: mild intermittent Asthma complication type: uncomplicated Qualified Code(s): J45.20 - Mild intermittent asthma, uncomplicated (4) Cannabis dependence Current Visit: Yes Status: Chronic (5) Cocaine dependence Current Visit: Yes Status: Chronic Qualifiers: Substance use status: uncomplicated Qualified Code(s): F14.20 - Cocaine dependence, uncomplicated (6) Hepatitis C Current Visit: Yes Status: Chronic Qualifiers: Viral hepatitis chronicity: chronic Hepatic coma status: without hepatic coma Qualified Code(s): B18.2 - Chronic viral hepatitis C (7) Low back pain Current Visit: Yes Status: Chronic Qualifiers: Back pain laterality: unspecified (8) Nicotine dependence Current Visit: No Status: Chronic Qualifiers: Nicotine product type: cigarettes Substance use status: uncomplicated Qualified Code(s): F17.210 - Nicotine dependence, cigarettes, uncomplicated (9) PCP dependence Current Visit: Yes Status: Chronic (10) Substance induced mood disorder Current Visit: Yes Status: Chronic (11) Alcohol dependence Current Visit: Yes Status: Chronic - Initial Treatment Plan Initial Treatment Plan: Seroquel 50 mg po hs.Will monitor progress.
[2017-02-15] MEDS: GABAPENTIN 100 MG CAPSULE (FP) PO SCH ×2 (15:56→21:10)
[2017-02-15] MEDS: THIAMINE HCL 100 MG TABLET (FP) PO SCH (21:10)
[2017-02-15] MEDS: QUEtiapine FUMARATE 50 MG TABLET PO SCH (21:11)
[2017-02-16] MEDS ORDERED: METHADONE HCL 10 MG TABLET ONE (03:22)
[2017-02-16] MEDS ORDERED: METHADONE HCL 40 MG DISPERSABLE TABLET ONE (03:23)
[2017-02-16] MEDS: METHADONE 40 MG, METHADONE 20 MG PO SCH (06:21)
[2017-02-16] MEDS: GABAPENTIN 100 MG CAPSULE (FP) PO SCH ×3 (06:22→21:15)
[2017-02-16] MEDS: IBUPROFEN 400 MG TABLET (FP) PO PRN (09:59)
[2017-02-16] MEDS: PRENATAL VITAMINS W/ FOLIC ACID TABLET (FP) PO SCH (10:00)
[2017-02-16] MEDS: NICOTINE 21 MG/24 HOURS TOPICAL PATCH TD SCH (10:00)
[2017-02-16] MEDS: QUEtiapine FUMARATE 50 MG TABLET PO SCH (21:15)
[2017-02-16] MEDS: THIAMINE HCL 100 MG TABLET (FP) PO SCH (21:16)
[2017-02-17] MEDS ORDERED: METHADONE HCL 40 MG DISPERSABLE TABLET ONE (05:45)
[2017-02-17] MEDS ORDERED: METHADONE HCL 10 MG TABLET ONE (05:45)
[2017-02-17] MEDS: METHADONE 40 MG, METHADONE 20 MG PO SCH (06:49)
[2017-02-17] MEDS: GABAPENTIN 100 MG CAPSULE (FP) PO SCH ×3 (06:49→21:22)
[2017-02-17] MEDS: NICOTINE 21 MG/24 HOURS TOPICAL PATCH TD SCH (10:15)
[2017-02-17] MEDS: PRENATAL VITAMINS W/ FOLIC ACID TABLET (FP) PO SCH (10:16)
[2017-02-17] MEDS: THIAMINE HCL 100 MG TABLET (FP) PO SCH (21:22)
[2017-02-17] MEDS: QUEtiapine FUMARATE 50 MG TABLET PO SCH (21:22)
[2017-02-17] MEDS: IBUPROFEN 400 MG TABLET (FP) PO PRN (21:23)
[2017-02-18] MEDS ORDERED: METHADONE HCL 10 MG TABLET ONE (03:12)
[2017-02-18] MEDS ORDERED: METHADONE HCL 40 MG DISPERSABLE TABLET ONE (03:12)
[2017-02-18] MEDS: METHADONE 40 MG, METHADONE 20 MG PO SCH (06:28)
[2017-02-18] MEDS: GABAPENTIN 100 MG CAPSULE (FP) PO SCH ×3 (06:29→21:13)
[2017-02-18] MEDS: NICOTINE 21 MG/24 HOURS TOPICAL PATCH TD SCH (09:54)
[2017-02-18] MEDS: PRENATAL VITAMINS W/ FOLIC ACID TABLET (FP) PO SCH (09:55)
[2017-02-18] MEDS: IBUPROFEN 400 MG TABLET (FP) PO PRN ×2 (09:56→21:15)
[2017-02-18] MEDS: THIAMINE HCL 100 MG TABLET (FP) PO SCH (21:14)
[2017-02-18] MEDS: QUEtiapine FUMARATE 50 MG TABLET PO SCH (21:14)
[2017-02-19] MEDS ORDERED: METHADONE HCL 40 MG DISPERSABLE TABLET ONE (03:07)
[2017-02-19] MEDS ORDERED: METHADONE HCL 10 MG TABLET ONE (03:07)
[2017-02-19] MEDS: METHADONE 40 MG, METHADONE 20 MG PO SCH (06:39)
[2017-02-19] MEDS: GABAPENTIN 100 MG CAPSULE (FP) PO SCH ×3 (06:39→21:12)
[2017-02-19] MEDS: PRENATAL VITAMINS W/ FOLIC ACID TABLET (FP) PO SCH (09:40)
[2017-02-19] MEDS: NICOTINE 21 MG/24 HOURS TOPICAL PATCH TD SCH (09:40)
[2017-02-19] MEDS: THIAMINE HCL 100 MG TABLET (FP) PO SCH (21:12)
[2017-02-19] MEDS: QUEtiapine FUMARATE 50 MG TABLET PO SCH (21:12)
[2017-02-19] MEDS: IBUPROFEN 400 MG TABLET (FP) PO PRN (21:13)
[2017-02-20] MEDS ORDERED: METHADONE HCL 40 MG DISPERSABLE TABLET ONE (03:14)
[2017-02-20] MEDS ORDERED: METHADONE HCL 10 MG TABLET ONE (03:14)
[2017-02-20] MEDS: METHADONE 40 MG, METHADONE 20 MG PO SCH (06:39)
[2017-02-20] MEDS: GABAPENTIN 100 MG CAPSULE (FP) PO SCH ×3 (06:40→21:19)
[2017-02-20] MEDS: NICOTINE 21 MG/24 HOURS TOPICAL PATCH TD SCH (10:09)
[2017-02-20] MEDS: PRENATAL VITAMINS W/ FOLIC ACID TABLET (FP) PO SCH (10:09)
[2017-02-20] MEDS: IBUPROFEN 400 MG TABLET (FP) PO PRN (13:52)
[2017-02-20] MEDS ORDERED: QUEtiapine FUMARATE 25 MG TABLET (FP) ONE (19:39)
[2017-02-20] MEDS: QUEtiapine FUMARATE 50 MG TABLET PO SCH (21:19)
[2017-02-20] MEDS: THIAMINE HCL 100 MG TABLET (FP) PO SCH (21:19)
[2017-02-20] MEDS: diphenhydrAMINE HCL 50 MG CAPSULE PO PRN (21:19)
[2017-02-21] MEDS ORDERED: METHADONE HCL 10 MG TABLET ONE (05:51)
[2017-02-21] MEDS ORDERED: METHADONE HCL 40 MG DISPERSABLE TABLET ONE (05:51)
[2017-02-21] MEDS: GABAPENTIN 100 MG CAPSULE (FP) PO SCH ×3 (06:04→21:25)
[2017-02-21] MEDS: METHADONE 40 MG, METHADONE 20 MG PO SCH (06:04)
[2017-02-21] MEDS: NICOTINE 21 MG/24 HOURS TOPICAL PATCH TD SCH (10:00)
[2017-02-21] MEDS: PRENATAL VITAMINS W/ FOLIC ACID TABLET (FP) PO SCH (10:01)
[2017-02-21] MEDS: THIAMINE HCL 100 MG TABLET (FP) PO SCH (21:25)
[2017-02-21] MEDS: QUEtiapine FUMARATE 50 MG TABLET PO SCH (21:25)
[2017-02-21] MEDS: diphenhydrAMINE HCL 50 MG CAPSULE PO PRN (21:25)
[2017-02-22] MEDS ORDERED: METHADONE HCL 10 MG TABLET PO SCH (06:00)
[2017-02-22] MEDS ORDERED: METHADONE HCL 10 MG TABLET ONE (06:07)
[2017-02-22] MEDS ORDERED: METHADONE HCL 40 MG DISPERSABLE TABLET ONE (06:07)
[2017-02-22] MEDS: METHADONE 40 MG, METHADONE 20 MG PO SCH (06:37)
[2017-02-22] MEDS: GABAPENTIN 100 MG CAPSULE (FP) PO SCH ×3 (06:38→21:21)
[2017-02-22] MEDS: PRENATAL VITAMINS W/ FOLIC ACID TABLET (FP) PO SCH (09:49)
[2017-02-22] MEDS: NICOTINE 21 MG/24 HOURS TOPICAL PATCH TD SCH (09:49)
[2017-02-22] MEDS: QUEtiapine FUMARATE 50 MG TABLET PO SCH (21:21)
[2017-02-22] MEDS: THIAMINE HCL 100 MG TABLET (FP) PO SCH (21:21)
[2017-02-22] MEDS: diphenhydrAMINE HCL 50 MG CAPSULE PO PRN (21:21)
[2017-02-22] MEDS: IBUPROFEN 400 MG TABLET (FP) PO PRN (21:22)
[2017-02-23] MEDS ORDERED: METHADONE HCL 40 MG DISPERSABLE TABLET ONE (03:12)
[2017-02-23] MEDS ORDERED: METHADONE HCL 10 MG TABLET ONE (03:12)
[2017-02-23] MEDS: METHADONE 40 MG, METHADONE 20 MG PO SCH (06:27)
[2017-02-23] MEDS: GABAPENTIN 100 MG CAPSULE (FP) PO SCH ×3 (06:27→21:21)
[2017-02-23] MEDS: PRENATAL VITAMINS W/ FOLIC ACID TABLET (FP) PO SCH (09:39)
[2017-02-23] MEDS: NICOTINE 21 MG/24 HOURS TOPICAL PATCH TD SCH (09:39)
[2017-02-23] MEDS: THIAMINE HCL 100 MG TABLET (FP) PO SCH (21:21)
[2017-02-23] MEDS: diphenhydrAMINE HCL 50 MG CAPSULE PO PRN (21:21)
[2017-02-23] MEDS: QUEtiapine FUMARATE 50 MG TABLET PO SCH (21:21)
[2017-02-23] MEDS: IBUPROFEN 400 MG TABLET (FP) PO PRN (21:22)
[2017-02-24] MEDS ORDERED: METHADONE HCL 10 MG TABLET ONE (03:26)
[2017-02-24] MEDS ORDERED: METHADONE HCL 40 MG DISPERSABLE TABLET ONE (03:27)
[2017-02-24] MEDS: GABAPENTIN 100 MG CAPSULE (FP) PO SCH ×3 (06:29→21:31)
[2017-02-24] MEDS: METHADONE 40 MG, METHADONE 20 MG PO SCH (06:29)
[2017-02-24] MEDS: PRENATAL VITAMINS W/ FOLIC ACID TABLET (FP) PO SCH (09:58)
[2017-02-24] MEDS: NICOTINE 21 MG/24 HOURS TOPICAL PATCH TD SCH (09:58)
[2017-02-24] MEDS ORDERED: LIDOCAINE VISCOUS 2% ORAL/TOP 20 ML UNIT-DOSE CUP MM PRN (15:36)
--- NOTE | 2017-02-24 15:39 | PN ---
BHS Progress Note Note: Pt. has poor oral hygiene. There are carries & decayed teeth. Exam : Abscess in gum left lower first molar P : amox
[2017-02-24] MEDS: AMOXICILLIN 500 MG CAPSULE (FP) PO SCH ×2 (16:30→21:31)
[2017-02-24] MEDS: QUEtiapine FUMARATE 50 MG TABLET PO SCH (21:32)
[2017-02-24] MEDS: diphenhydrAMINE HCL 50 MG CAPSULE PO PRN (21:32)
[2017-02-24] MEDS: IBUPROFEN 400 MG TABLET (FP) PO PRN (21:32)
[2017-02-24] MEDS: THIAMINE HCL 100 MG TABLET (FP) PO SCH (21:32)
[2017-02-25] MEDS ORDERED: METHADONE HCL 10 MG TABLET ONE (05:41)
[2017-02-25] MEDS ORDERED: METHADONE HCL 40 MG DISPERSABLE TABLET ONE (05:42)
[2017-02-25] MEDS: AMOXICILLIN 500 MG CAPSULE (FP) PO SCH ×3 (06:41→21:24)
[2017-02-25] MEDS: METHADONE 40 MG, METHADONE 20 MG PO SCH (06:41)
[2017-02-25] MEDS: GABAPENTIN 100 MG CAPSULE (FP) PO SCH ×3 (06:41→21:24)
[2017-02-25] MEDS: NICOTINE 21 MG/24 HOURS TOPICAL PATCH TD SCH (09:46)
[2017-02-25] MEDS: PRENATAL VITAMINS W/ FOLIC ACID TABLET (FP) PO SCH (09:46)
[2017-02-25] MEDS: diphenhydrAMINE HCL 50 MG CAPSULE PO PRN (21:24)
[2017-02-25] MEDS: QUEtiapine FUMARATE 50 MG TABLET PO SCH (21:24)
[2017-02-25] MEDS: THIAMINE HCL 100 MG TABLET (FP) PO SCH (21:24)
[2017-02-25] MEDS: IBUPROFEN 400 MG TABLET (FP) PO PRN (21:26)
[2017-02-26] MEDS ORDERED: METHADONE HCL 40 MG DISPERSABLE TABLET ONE (05:44)
[2017-02-26] MEDS ORDERED: METHADONE HCL 10 MG TABLET ONE (05:44)
[2017-02-26] MEDS: AMOXICILLIN 500 MG CAPSULE (FP) PO SCH ×3 (06:40→21:43)
[2017-02-26] MEDS: GABAPENTIN 100 MG CAPSULE (FP) PO SCH ×3 (06:40→21:43)
[2017-02-26] MEDS: METHADONE 40 MG, METHADONE 20 MG PO SCH (06:40)
[2017-02-26] MEDS: NICOTINE 21 MG/24 HOURS TOPICAL PATCH TD SCH (10:03)
[2017-02-26] MEDS: PRENATAL VITAMINS W/ FOLIC ACID TABLET (FP) PO SCH (10:03)
[2017-02-26] MEDS: QUEtiapine FUMARATE 50 MG TABLET PO SCH (21:43)
[2017-02-26] MEDS: THIAMINE HCL 100 MG TABLET (FP) PO SCH (21:43)
[2017-02-26] MEDS: diphenhydrAMINE HCL 50 MG CAPSULE PO PRN (21:43)
[2017-02-26] MEDS: IBUPROFEN 400 MG TABLET (FP) PO PRN (21:44)
[2017-02-27] MEDS ORDERED: METHADONE HCL 40 MG DISPERSABLE TABLET ONE (03:26)
[2017-02-27] MEDS ORDERED: METHADONE HCL 10 MG TABLET ONE (03:26)
[2017-02-27] MEDS: METHADONE 40 MG, METHADONE 20 MG PO SCH (06:24)
[2017-02-27] MEDS: AMOXICILLIN 500 MG CAPSULE (FP) PO SCH ×3 (06:25→21:20)
[2017-02-27] MEDS: GABAPENTIN 100 MG CAPSULE (FP) PO SCH ×3 (06:25→21:20)
[2017-02-27] MEDS: PRENATAL VITAMINS W/ FOLIC ACID TABLET (FP) PO SCH (10:32)
[2017-02-27] MEDS: NICOTINE 21 MG/24 HOURS TOPICAL PATCH TD SCH (10:32)
[2017-02-27] MEDS ORDERED: QUEtiapine FUMARATE 25 MG TABLET (FP) ONE (19:42)
[2017-02-27] MEDS: QUEtiapine FUMARATE 50 MG TABLET PO SCH (21:20)
[2017-02-27] MEDS: THIAMINE HCL 100 MG TABLET (FP) PO SCH (21:20)
[2017-02-27] MEDS: diphenhydrAMINE HCL 50 MG CAPSULE PO PRN (21:20)
[2017-02-27] MEDS: IBUPROFEN 400 MG TABLET (FP) PO PRN (21:21)
[2017-02-28] MEDS ORDERED: METHADONE HCL 40 MG DISPERSABLE TABLET ONE (06:15)
[2017-02-28] MEDS ORDERED: METHADONE HCL 10 MG TABLET ONE (06:15)
[2017-02-28] MEDS: METHADONE 40 MG, METHADONE 20 MG PO SCH (06:23)
[2017-02-28] MEDS: GABAPENTIN 100 MG CAPSULE (FP) PO SCH ×3 (06:24→21:21)
[2017-02-28] MEDS: AMOXICILLIN 500 MG CAPSULE (FP) PO SCH ×3 (06:24→21:21)
[2017-02-28] MEDS: PRENATAL VITAMINS W/ FOLIC ACID TABLET (FP) PO SCH (09:58)
[2017-02-28] MEDS: NICOTINE 21 MG/24 HOURS TOPICAL PATCH TD SCH (09:58)
[2017-02-28] MEDS: QUEtiapine FUMARATE 50 MG TABLET PO SCH (21:21)
[2017-02-28] MEDS: diphenhydrAMINE HCL 50 MG CAPSULE PO PRN (21:22)
[2017-02-28] MEDS: THIAMINE HCL 100 MG TABLET (FP) PO SCH (21:22)
[2017-02-28] MEDS: IBUPROFEN 400 MG TABLET (FP) PO PRN (21:24)
[2017-03-01] MEDS ORDERED: METHADONE HCL 10 MG TABLET ONE (03:27)
[2017-03-01] MEDS ORDERED: METHADONE HCL 40 MG DISPERSABLE TABLET ONE (03:27)
[2017-03-01] MEDS: METHADONE 40 MG, METHADONE 20 MG PO SCH (06:21)
[2017-03-01] MEDS: AMOXICILLIN 500 MG CAPSULE (FP) PO SCH ×3 (07:21→21:16)
[2017-03-01] MEDS: GABAPENTIN 100 MG CAPSULE (FP) PO SCH ×3 (07:22→21:16)
[2017-03-01] MEDS: PRENATAL VITAMINS W/ FOLIC ACID TABLET (FP) PO SCH (09:47)
[2017-03-01] MEDS: NICOTINE 21 MG/24 HOURS TOPICAL PATCH TD SCH (09:47)
[2017-03-01] MEDS: QUEtiapine FUMARATE 50 MG TABLET PO SCH (21:16)
[2017-03-01] MEDS: THIAMINE HCL 100 MG TABLET (FP) PO SCH (21:16)
[2017-03-01] MEDS: diphenhydrAMINE HCL 50 MG CAPSULE PO PRN (21:16)
[2017-03-01] MEDS: IBUPROFEN 400 MG TABLET (FP) PO PRN (21:18)
[2017-03-02] MEDS ORDERED: METHADONE HCL 10 MG TABLET ONE (06:18)
[2017-03-02] MEDS ORDERED: METHADONE HCL 40 MG DISPERSABLE TABLET ONE (06:18)
[2017-03-02] MEDS: AMOXICILLIN 500 MG CAPSULE (FP) PO SCH ×3 (06:23→21:15)
[2017-03-02] MEDS: METHADONE 40 MG, METHADONE 20 MG PO SCH (06:23)
[2017-03-02] MEDS: GABAPENTIN 100 MG CAPSULE (FP) PO SCH ×3 (06:23→21:16)
[2017-03-02] MEDS: NICOTINE 21 MG/24 HOURS TOPICAL PATCH TD SCH (09:55)
[2017-03-02] MEDS: PRENATAL VITAMINS W/ FOLIC ACID TABLET (FP) PO SCH (09:55)
[2017-03-02] MEDS: IBUPROFEN 400 MG TABLET (FP) PO PRN (21:16)
[2017-03-02] MEDS: QUEtiapine FUMARATE 50 MG TABLET PO SCH (21:16)
[2017-03-02] MEDS: diphenhydrAMINE HCL 50 MG CAPSULE PO PRN (21:16)
[2017-03-02] MEDS: THIAMINE HCL 100 MG TABLET (FP) PO SCH (21:17)
[2017-03-03] MEDS ORDERED: METHADONE HCL 40 MG DISPERSABLE TABLET ONE (05:51)
[2017-03-03] MEDS ORDERED: METHADONE HCL 10 MG TABLET ONE (05:51)
[2017-03-03] MEDS: METHADONE 40 MG, METHADONE 20 MG PO SCH (06:43)
[2017-03-03] MEDS: GABAPENTIN 100 MG CAPSULE (FP) PO SCH ×3 (06:43→21:23)
[2017-03-03] MEDS: AMOXICILLIN 500 MG CAPSULE (FP) PO SCH ×2 (06:43→13:26)
[2017-03-03] MEDS: PRENATAL VITAMINS W/ FOLIC ACID TABLET (FP) PO SCH (10:03)
[2017-03-03] MEDS: NICOTINE 21 MG/24 HOURS TOPICAL PATCH TD SCH (10:03)
[2017-03-03] MEDS: IBUPROFEN 400 MG TABLET (FP) PO PRN ×2 (15:02→21:23)
[2017-03-03] MEDS: THIAMINE HCL 100 MG TABLET (FP) PO SCH (21:23)
[2017-03-03] MEDS: QUEtiapine FUMARATE 50 MG TABLET PO SCH (21:23)
[2017-03-03] MEDS: diphenhydrAMINE HCL 50 MG CAPSULE PO PRN (21:24)
[2017-03-04] MEDS ORDERED: METHADONE HCL 10 MG TABLET ONE (03:20)
[2017-03-04] MEDS ORDERED: METHADONE HCL 40 MG DISPERSABLE TABLET ONE (03:21)
[2017-03-04] MEDS: METHADONE 40 MG, METHADONE 20 MG PO SCH (06:49)
[2017-03-04] MEDS: GABAPENTIN 100 MG CAPSULE (FP) PO SCH ×3 (06:50→21:18)
[2017-03-04] MEDS: PRENATAL VITAMINS W/ FOLIC ACID TABLET (FP) PO SCH (09:39)
[2017-03-04] MEDS: NICOTINE 21 MG/24 HOURS TOPICAL PATCH TD SCH (09:39)
[2017-03-04] MEDS: QUEtiapine FUMARATE 50 MG TABLET PO SCH (21:18)
[2017-03-04] MEDS: THIAMINE HCL 100 MG TABLET (FP) PO SCH (21:18)
[2017-03-04] MEDS: IBUPROFEN 400 MG TABLET (FP) PO PRN (21:19)
[2017-03-04] MEDS: diphenhydrAMINE HCL 50 MG CAPSULE PO PRN (21:19)
[2017-03-05] MEDS ORDERED: METHADONE HCL 10 MG TABLET ONE (03:23)
[2017-03-05] MEDS ORDERED: METHADONE HCL 40 MG DISPERSABLE TABLET ONE (03:24)
[2017-03-05] MEDS: METHADONE 40 MG, METHADONE 20 MG PO SCH (06:42)
[2017-03-05] MEDS: GABAPENTIN 100 MG CAPSULE (FP) PO SCH ×3 (06:43→21:12)
[2017-03-05] MEDS: PRENATAL VITAMINS W/ FOLIC ACID TABLET (FP) PO SCH (09:30)
[2017-03-05] MEDS: NICOTINE 21 MG/24 HOURS TOPICAL PATCH TD SCH (09:30)
[2017-03-05] MEDS: IBUPROFEN 400 MG TABLET (FP) PO PRN (11:18)
[2017-03-05] MEDS: diphenhydrAMINE HCL 50 MG CAPSULE PO PRN (21:12)
[2017-03-05] MEDS: QUEtiapine FUMARATE 50 MG TABLET PO SCH (21:12)
[2017-03-05] MEDS: THIAMINE HCL 100 MG TABLET (FP) PO SCH (21:12)
[2017-03-06] MEDS ORDERED: METHADONE HCL 10 MG TABLET ONE (03:18)
[2017-03-06] MEDS ORDERED: METHADONE HCL 40 MG DISPERSABLE TABLET ONE (03:18)
[2017-03-06] MEDS: GABAPENTIN 100 MG CAPSULE (FP) PO SCH ×3 (06:23→21:09)
[2017-03-06] MEDS: METHADONE 40 MG, METHADONE 20 MG PO SCH (06:23)
[2017-03-06] MEDS: PRENATAL VITAMINS W/ FOLIC ACID TABLET (FP) PO SCH (09:40)
[2017-03-06] MEDS: NICOTINE 21 MG/24 HOURS TOPICAL PATCH TD SCH (09:40)
[2017-03-06] MEDS: QUEtiapine FUMARATE 50 MG TABLET PO SCH (21:09)
[2017-03-06] MEDS: diphenhydrAMINE HCL 50 MG CAPSULE PO PRN (21:09)
[2017-03-06] MEDS: THIAMINE HCL 100 MG TABLET (FP) PO SCH (21:09)
[2017-03-06] MEDS: IBUPROFEN 400 MG TABLET (FP) PO PRN (21:10)
[2017-03-07] MEDS ORDERED: METHADONE HCL 40 MG DISPERSABLE TABLET ONE (05:48)
[2017-03-07] MEDS ORDERED: METHADONE HCL 10 MG TABLET ONE (05:48)
[2017-03-07] MEDS ORDERED: METHADONE HCL 10 MG TABLET PO SCH (06:00)
[2017-03-07] MEDS: GABAPENTIN 100 MG CAPSULE (FP) PO SCH ×3 (06:25→21:28)
[2017-03-07] MEDS: METHADONE 40 MG, METHADONE 20 MG PO SCH (06:25)
[2017-03-07] MEDS: PRENATAL VITAMINS W/ FOLIC ACID TABLET (FP) PO SCH (10:14)
[2017-03-07] MEDS: NICOTINE 21 MG/24 HOURS TOPICAL PATCH TD SCH (10:14)
[2017-03-07] MEDS: QUEtiapine FUMARATE 50 MG TABLET PO SCH (21:28)
[2017-03-07] MEDS: THIAMINE HCL 100 MG TABLET (FP) PO SCH (21:28)
[2017-03-07] MEDS: IBUPROFEN 400 MG TABLET (FP) PO PRN (21:29)
[2017-03-07] MEDS: diphenhydrAMINE HCL 50 MG CAPSULE PO PRN (21:29)
[2017-03-08] MEDS ORDERED: METHADONE HCL 10 MG TABLET ONE (03:21)
[2017-03-08] MEDS ORDERED: METHADONE HCL 40 MG DISPERSABLE TABLET ONE (03:21)
[2017-03-08] MEDS: METHADONE 40 MG, METHADONE 20 MG PO SCH (06:38)
[2017-03-08] MEDS: GABAPENTIN 100 MG CAPSULE (FP) PO SCH (06:38)
[2017-03-08 07:15] VITALS: BP 105/70; PULSE 80; TEMP 97.6
--- NOTE | 2017-03-08 13:09 | PN ---
Psychiatric Progress Note Vital Signs: Vital Signs Period Temp Pulse Resp BP Sys/Maldonado Pulse Ox Last 24 Hr 97.6 F 80 6-18 105/70 Date of Session: 03/08/17 Chief Complaint:: Discharge visit HPI: Patient addressed Alcohol, Current Side Effect: No Lab tests ordered: No Lab tests reviewed: Yes Provider note:: [facility] Total face to face time:: 30 Psychiatric Treatment Plan - Problem List (3) Asthma Qualifiers: Asthma severity: mild intermittent Asthma complication type: uncomplicated Qualified Code(s): J45.20 - Mild intermittent asthma, uncomplicated (5) Cocaine dependence Qualifiers: Substance use status: uncomplicated Qualified Code(s): F14.20 - Cocaine dependence, uncomplicated (6) Hepatitis C Qualifiers: Viral hepatitis chronicity: chronic Hepatic coma status: without hepatic coma Qualified Code(s): B18.2 - Chronic viral hepatitis C (7) Low back pain Qualifiers: Back pain laterality: unspecified (8) Nicotine dependence Qualifiers: Nicotine product type: cigarettes Substance use status: uncomplicated Qualified Code(s): F17.210 - Nicotine dependence, cigarettes, uncomplicated
== END 2017-03-08 08:55 | disposition home or self-care (01) | DRG 772 ==
LOC: YASAS 14:32 → Y3E 14:33
PROVIDERS: ADMIT Psychiatry & Neurology Psychiatry; ATTEND Psychiatry & Neurology Psychiatry
PROC: HZ42ZZZ Group Counseling for Substance Abuse Treatment, Cognitive-Behavioral (ICD-10-PCS; principal; 2017-02-14)
DX: F10.20 Alcohol dependence, uncomplicated (principal); F11.20 Opioid dependence, uncomplicated; F14.20 Cocaine dependence, uncomplicated; F12.20 Cannabis dependence, uncomplicated; F16.20 Hallucinogen dependence, uncomplicated; F17.210 Nicotine dependence, cigarettes, uncomplicated; F19.24 Other psychoactive substance dependence with psychoactive substance-induced mood disorder; J45.20 Mild intermittent asthma, uncomplicated; B18.2 Chronic viral hepatitis C; M54.5 Low back pain; M13.869 Other specified arthritis, unspecified knee; K05.219 Aggressive periodontitis, localized, unspecified severity; K02.9 Dental caries, unspecified
CPT/HCPCS: 90732; G0009

== ENCOUNTER 2018-03-24 08:43 | Inpatient (IN) | payer OTHER ==
[2018-03-24 10:16] VITALS: BMI 21.0
--- NOTE | 2018-03-24 11:04 | HP ---
CIWA Score - CIWA Score Nausea/Vomitin-Mild Nausea/No Vomiting Muscle Tremors: 3 Anxiety: 2 Agitation: 3 Paroxysmal Sweats: 1-Minimal Palms Moist Orientation: 1-Uncertain about Date Tacttile Disturbances: 1-Very Mild Itch/Numbness Auditory Disturbances: 1-Very Mild Visual Disturbances: 1-Very Mild Sensitivity Headache: 2-Mild CIWA-Ar Total Score: 16 Admission ROS BHS - HPI Chief Complaint: I'm tired, I need help, I'm tired Allergies/Adverse Reactions: Allergies Allergy/AdvReac Type Severity Reaction Status Date / Time egg [Egg] Allergy Mild Rash Verified 02/10/17 16:21 History of Present Illness: 47 yo woman here for detox from alcohol. This is one of multiple admissions for polysubstance use. She is on a methadone program, [facility] ([place] [address]) 60mg and was dosed today. She denies seizures but does have black outs and has had overdose. Urine tox + for bzo and bar but she denies use of these (likely mixed with heroin and or/cocaine). Patient drowsy but rousable during evaluation. Exam Limitations: Clinical Condition - Ebola screening Have you traveled outside of the country in the last 21 days: No (N) Have you had contact with anyone from an Ebola affected area: No Have you been sick,other than usual withdrawal symptoms: No Do you have a fever: No - Review of Systems Constitutional: Loss of Appetite, Malaise, Unintentional Wgt. Loss EENT: reports: Nose Congestion Respiratory: reports: No Symptoms reported Cardiac: reports: No Symptoms Reported GI: reports: Poor Appetite, Poor Fluid Intake, Abdominal cramping : reports: Frequency Musculoskeletal: reports: Back Pain, Joint Pain (knee) Integumentary: reports: No Symptoms Reported Neuro: reports: Headache, Tremors Endocrine: reports: No Symptoms Reported Hematology: reports: No Symptoms Reported Psychiatric: reports: Judgement Intact, Mood/Affect Appropiate, Anxious Other Systems: Reviewed and Negative Patient History - Patient Medical History Hx Anemia: No Hx Asthma: No Hx Chronic Obstructive Pulmonary Disease (COPD): No Hx Cancer: No Hx Cardiac Disorders: No Hx Congestive Heart Failure: No Hx Hypertension: No Hx Hypercholesterolemia: No Hx Pacemaker: No HX Cerebrovascular Accident: No Hx Seizures: No Hx Dementia: No Hx Diabetes: No Hx Gastrointestinal Disorders: No Hx Liver Disease: No Hx Genitourinary Disorders: No Hx Sexually Transmitted Disorders: No Hx Renal Disease (ESRD): No Hx Thyroid Disease: No Hx Human Immunodeficiency Virus (HIV): No Hx Hepatitis C: Yes (not treated) Hx Depression: Yes (no medication) Hx Suicide Attempt: No Hx Bipolar Disorder: No Hx Schizophrenia: No Other Medical History: Von Willebrand disease (no meds), back, left knee pain - Patient Surgical History Past Surgical History: Yes Hx Neurologic Surgery: No Hx Cataract Extraction: No Hx Cardiac Surgery: No Hx Lung Surgery: No Hx Breast Surgery: No Hx Breast Biopsy: No Hx Abdominal Surgery: No Hx Appendectomy: No Hx Cholecystectomy: No Hx Genitourinary Surgery: No Hx Section: No Hx Orthopedic Surgery: No Other Surgical History: BILATERAL INGUINAL HERNIA SX..1982 & 1988 Anesthesia Reaction: No - PPD History Previous Implant?: Yes Documented Results: Negative w/proof Date: 02/12/17 Results: 0mm PPD to be Administered?: Yes - Reproductive History Patient is a Female of Child Bearing Age (11 -55 yrs old): Yes Last Menstrual Period: 08/15/09 - Smoking Cessation Smoking history: Current every day smoker Have you smoked in the past 12 months: Yes Aproximately how many cigarettes per day: 10 Hx Chewing Tobacco Use: No Initiated information on smoking cessation: Yes 'Breaking Loose' booklet given: 03/24/18 (give on floor) - Substance & Tx. History Hx Alcohol Use: Yes Hx Substance Use: Yes Substance Use Type: Alcohol, Cocaine Hx Substance Use Treatment: Yes (detox, rehab, methadone program) - Substances Abused alcohol Route: Oral Frequency: Daily Amount used: five 24oz cans beer Age of first use: 13 Date of Last Use: 03/24/18 heroin Route: Inhalation Frequency: 1-3 times last 30 days Amount used: 2 bag Age of first use: 22 Date of Last Use: 03/23/18 cocaine Route: Smoking Frequency: Daily Amount used: $50 Age of first use: 15 Date of Last Use: 03/23/18 Family Disease History - Family Disease History Family Disease History: Other: Father (, MVA, hx etoh), Mother (living , healthy), Son (three, healthy), Daughter (two, healthy) Admission Physical Exam BHS - Vital Signs Vital Signs: Vital Signs - 24 hr 03/24/18 10:11 Temperature 98.0 F Pulse Rate 84 Respiratory 20 Rate Blood Pressure 103/69 - Physical General Appearance: Yes: Nourished, Appropriately Dressed, Moderate Distress, Anxious HEENTM: Yes: EOMI, Hearing grossly Normal, Normocephalic, Normal Voice, Pharynx Normal Respiratory: Yes: Normal Breath Sounds, No Respiratory Distress Neck: Yes: No masses,lesions,Nodules, Supple Breast: Yes: Breast Exam Deferred Cardiology: Yes: Regular Rhythm, Regular Rate Abdominal: Yes: Flat Genitourinary: Yes: Frequency Back: Yes: Normal Inspection Musculoskeletal: Yes: full range of Motion, Gait Steady Extremities: Yes: Normal Inspection, Normal Range of Motion, Non-Tender Neurological: Yes: Alert, Normal Response Integumentary: Yes: Normal Color, Warm, Track [place] (both arms - mild erythema at wrist but denies tenderness), Other Lymphatic: Yes: Within Normal Limits - Diagnostic (1) Alcohol dependence with uncomplicated withdrawal Current Visit: Yes Status: Chronic (2) Cocaine dependence Current Visit: Yes Status: Chronic Qualifiers: Substance use status: uncomplicated Qualified Code(s): F14.20 - Cocaine dependence, uncomplicated (3) Methadone maintenance therapy patient Current Visit: Yes Status: Chronic Comment: 60mg [facility] (4) Hepatitis C Current Visit: Yes Status: Chronic Qualifiers: Viral hepatitis chronicity: chronic Hepatic coma status: without hepatic coma Qualified Code(s): B18.2 - Chronic viral hepatitis C (5) Nicotine dependence Current Visit: Yes Status: Chronic Qualifiers: Nicotine product type: cigarettes Substance use status: uncomplicated Qualified Code(s): F17.210 - Nicotine dependence, cigarettes, uncomplicated (6) Low back pain Current Visit: Yes Status: Chronic Qualifiers: Back pain laterality: unspecified (7) Arthritis of left knee Current Visit: No Status: Chronic (8) Von Willebrand disease Current Visit: Yes Status: Chronic Cleared for Admission [facility] - Detox or Rehab [facility] Level of Care: Medically Managed Detox Regimen/Protocol: Librium [facility] Breath Alcohol Content Breath Alcohol Content: 0 Urine Pregancy Test - Result Urine Test Results: Negative- NO Line Present Urine Drug Screen - Results Drug Screen Negative: No Urine Drug Screen Results: MARIA VICTORIA-Cocaine, OPI-Opiates, BAR-Barbiturates, BZO- Benzodiazepines, MTD-Methadone, FEN-Fentanyl
[2018-03-24] MEDS ORDERED: MAGNESIUM CITRATE 300 ML BOTTLE PO PRN (11:15)
[2018-03-24] MEDS ORDERED: P-EPHED 60MG/TRIPROLIDI 2.5MG TABLET PO PRN (11:15)
[2018-03-24] MEDS ORDERED: MENTHOL/PHENOL 1 EACH UD MM PRN (11:15)
[2018-03-24] MEDS ORDERED: hydrOXYzine PAMOATE 25 MG CAPSULE (FP) PO PRN (11:15)
[2018-03-24] MEDS ORDERED: IBUPROFEN 400 MG TABLET (FP) PO PRN (11:15)
[2018-03-24] MEDS ORDERED: ACETAMINOPHEN 325 MG TABLET (FP) PO PRN (11:15)
[2018-03-24] MEDS ORDERED: chlordiazePOXIDE HCL 25 MG CAPSULE PO PRN (11:15)
[2018-03-24] MEDS ORDERED: MAG HYDROX/AL HYDROX/SIMETH 30 ML UNIT-DOSE CUP PO PRN (11:15)
[2018-03-24] MEDS ORDERED: LOPERAMIDE HCL 2 MG CAPSULE PO PRN (11:15)
[2018-03-24] MEDS ORDERED: MAGNESIUM HYDROX 2400MG/30ML ORAL SUSPENSION 30 ML CUP PO PRN (11:15)
[2018-03-24] MEDS ORDERED: guaiFENesin/D-METHORPHAN HB 10 ML UNIT-DOSE CUPS PO PRN (11:15)
[2018-03-24] MEDS ORDERED: chlordiazePOXIDE HCL 25 MG CAPSULE PO ONE (13:30)
[2018-03-24] MEDS: NICOTINE 14 MG/24 HOURS TOPICAL PATCH TD SCH (15:03)
[2018-03-24] MEDS: chlordiazePOXIDE HCL 25 MG CAPSULE PO SCH ×2 (18:13→22:59)
[2018-03-24] MEDS ORDERED: MELATONIN 5 MG TABLETS PO PRN (22:00)
[2018-03-24] MEDS: THIAMINE HCL 100 MG TABLET (FP) PO SCH (22:59)
[2018-03-25] MEDS: chlordiazePOXIDE HCL 25 MG CAPSULE PO SCH ×4 (05:47→22:16)
[2018-03-25] MEDS ORDERED: METHADONE HCL 40 MG DISPERSABLE TABLET PO SCH (10:00)
[2018-03-25] MEDS: PRENATAL VITAMINS W/ FOLIC ACID TABLET (FP) PO SCH (10:29)
[2018-03-25] MEDS: METHADONE 40 MG, METHADONE 20 MG PO SCH (10:30)
[2018-03-25] MEDS ORDERED: METHADONE HCL 10 MG TABLET ONE (10:30)
[2018-03-25] MEDS ORDERED: METHADONE HCL 40 MG DISPERSABLE TABLET ONE (10:30)
[2018-03-25] MEDS: NICOTINE 14 MG/24 HOURS TOPICAL PATCH TD SCH (10:31)
[2018-03-25 10:33] LABS: HEMATOCRIT 35.3 % (32.4-45.2); HEMOGLOBIN 11.6 GM/dL (10.7-15.3); MCH 30.5 pg (25.7-33.7); MCHC 32.8 g/dl (32.0-36.0); MEAN CELL VOLUME 92.9 fl (80-96); MEAN PLT VOLUME 8.7 fl (7.5-11.1); PLATELET COUNT 189 K/MM3 (134-434); RDW 12.8 % (11.6-15.6); WHITE BLOOD COUNT 3.9 K/mm3 (4.0-10.0)
[2018-03-25 10:53] LABS: CHLORIDE 104 mmol/L (98-107); SODIUM 141 mmol/L (136-145)
[2018-03-25 11:02] LABS: ALK PHOS 100 U/L (45-117); ANION GAP 8 MMOL/L (8-16); BILIRUBIN,TOTAL 0.3 mg/dL (0.2-1.0); BLOOD UREA NITROGEN 15 mg/dL (7-18); CALCIUM 8.6 mg/dL (8.5-10.1); CO2 29 mmol/L (21-32); CREATININE 0.6 mg/dL (0.55-1.3); GLUCOSE,RANDOM 87 mg/dL (74-106); SGOT/AST 13 U/L (15-37); SGPT/ALT 14 U/L (13-61); TOT PROT 6.6 g/dl (6.4-8.2)
--- NOTE | 2018-03-25 13:53 | PN ---
S CIWA - CIWA Score Nausea/Vomitin-Mild Nausea/No Vomiting Muscle Tremors: 3 Anxiety: 3 Agitation: 3 Paroxysmal Sweats: 1-Minimal Palms Moist Orientation: 0-Oriented Tacttile Disturbances: 1-Very Mild Itch/Numbness Auditory Disturbances: 0-None Visual Disturbances: 0-None Headache: 0-None Present CIWA-Ar Total Score: 12 BHS Progress Note (SOAP) Subjective: sweat tremor anxiety restlessness trouble sleep at night low energy Objective: 03/25/18 13:52 Vital Signs Temperature 97.7 F 03/25/18 09:41 Pulse Rate 72 03/25/18 09:41 Respiratory Rate 16 03/25/18 09:41 Blood Pressure 117/73 03/25/18 09:41 O2 Sat by Pulse Oximetry (%) Laboratory Last Values WBC 3.9 K/mm3 (4.0-10.0) L 03/25/18 07:25 RBC 3.80 M/mm3 (3.60-5.2) 03/25/18 07:25 Hgb 11.6 GM/dL (10.7-15.3) 03/25/18 07:25 Hct 35.3 % (32.4-45.2) 03/25/18 07:25 MCV 92.9 fl (80-96) 03/25/18 07:25 MCH 30.5 pg (25.7-33.7) 03/25/18 07:25 MCHC 32.8 g/dl (32.0-36.0) 03/25/18 07:25 RDW 12.8 % (11.6-15.6) 03/25/18 07:25 Plt Count 189 K/MM3 (134-434) 03/25/18 07:25 MPV 8.7 fl (7.5-11.1) 03/25/18 07:25 Sodium 141 mmol/L (136-145) 03/25/18 07:25 Potassium 4.0 mmol/L (3.5-5.1) 03/25/18 07:25 Chloride 104 mmol/L (98-107) 03/25/18 07:25 Carbon Dioxide 29 mmol/L (21-32) 03/25/18 07:25 Anion Gap 8 MMOL/L (8-16) 03/25/18 07:25 BUN 15 mg/dL (7-18) 03/25/18 07:25 Creatinine 0.6 mg/dL (0.55-1.3) 03/25/18 07:25 Creat Clearance w eGFR > 60 (>60) 03/25/18 07:25 Random Glucose 87 mg/dL (74-106) 03/25/18 07:25 Calcium 8.6 mg/dL (8.5-10.1) 03/25/18 07:25 Total Bilirubin 0.3 mg/dL (0.2-1.0) 03/25/18 07:25 AST 13 U/L (15-37) L 03/25/18 07:25 ALT 14 U/L (13-61) 03/25/18 07:25 Alkaline Phosphatase 100 U/L (45-117) 03/25/18 07:25 Total Protein 6.6 g/dl (6.4-8.2) 03/25/18 07:25 Albumin 3.0 g/dl (3.4-5.0) L 03/25/18 07:25 RPR Titer Nonreactive (NONREACTIVE) 03/25/18 07:25 lab noted Assessment: 03/25/18 13:54 withdrawal sx methadone maintenance 60 mg Plan: continue detox
[2018-03-25] MEDS: THIAMINE HCL 100 MG TABLET (FP) PO SCH (22:16)
--- NOTE | 2018-03-25 22:30 | EKG ---
Test Reason : Blood Pressure : / mmHG Vent. Rate : 066 BPM Atrial Rate : 066 BPM P-R Int : 134 ms QRS Dur : 080 ms QT Int : 486 ms P-R-T Axes : 064 079 064 degrees QTc Int : 509 ms NORMAL SINUS RHYTHM SEPTAL INFARCT (CITED ON OR BEFORE 10-FEB-2017) T WAVE ABNORMALITY, CONSIDER ANTERIOR ISCHEMIA PROLONGED QT ABNORMAL ECG WHEN COMPARED WITH ECG OF 10-FEB-2017 17:45, PREMATURE ATRIAL COMPLEXES ARE NO LONGER PRESENT Confirmed by JUSTEN ROSALES MD ([id number]) on 03/25/2018 10:29:35 PM Referred By: Confirmed By:JUSTEN ROSALES MD
[2018-03-26] MEDS: chlordiazePOXIDE HCL 25 MG CAPSULE PO SCH ×2 (05:33→10:54)
[2018-03-26] MEDS: METHADONE 40 MG, METHADONE 20 MG PO SCH (05:36)
[2018-03-26] MEDS ORDERED: METHADONE HCL 10 MG TABLET ONE (05:36)
[2018-03-26] MEDS ORDERED: METHADONE HCL 40 MG DISPERSABLE TABLET ONE (05:36)
--- NOTE | 2018-03-26 10:25 | PN ---
S CIWA - CIWA Score Nausea/Vomitin-No Nausea/No Vomiting Muscle Tremors: 3 Anxiety: 3 Agitation: 2 Paroxysmal Sweats: 1-Minimal Palms Moist Orientation: 0-Oriented Tacttile Disturbances: 1-Very Mild Itch/Numbness Auditory Disturbances: 0-None Visual Disturbances: 0-None Headache: 1-Very Mild CIWA-Ar Total Score: 11 S Progress Note (SOAP) Subjective: sweat tremor restlessness irritable Objective: 03/26/18 16:14 Vital Signs Temperature 98.1 F 03/26/18 13:01 Pulse Rate 76 03/26/18 13:01 Respiratory Rate 18 03/26/18 13:01 Blood Pressure 114/66 03/26/18 13:01 O2 Sat by Pulse Oximetry (%) Laboratory Last Values WBC 3.9 K/mm3 (4.0-10.0) L 03/25/18 07:25 RBC 3.80 M/mm3 (3.60-5.2) 03/25/18 07:25 Hgb 11.6 GM/dL (10.7-15.3) 03/25/18 07:25 Hct 35.3 % (32.4-45.2) 03/25/18 07:25 MCV 92.9 fl (80-96) 03/25/18 07:25 MCH 30.5 pg (25.7-33.7) 03/25/18 07:25 MCHC 32.8 g/dl (32.0-36.0) 03/25/18 07:25 RDW 12.8 % (11.6-15.6) 03/25/18 07:25 Plt Count 189 K/MM3 (134-434) 03/25/18 07:25 MPV 8.7 fl (7.5-11.1) 03/25/18 07:25 Sodium 141 mmol/L (136-145) 03/25/18 07:25 Potassium 4.0 mmol/L (3.5-5.1) 03/25/18 07:25 Chloride 104 mmol/L (98-107) 03/25/18 07:25 Carbon Dioxide 29 mmol/L (21-32) 03/25/18 07:25 Anion Gap 8 MMOL/L (8-16) 03/25/18 07:25 BUN 15 mg/dL (7-18) 03/25/18 07:25 Creatinine 0.6 mg/dL (0.55-1.3) 03/25/18 07:25 Creat Clearance w eGFR > 60 (>60) 03/25/18 07:25 Random Glucose 87 mg/dL (74-106) 03/25/18 07:25 Calcium 8.6 mg/dL (8.5-10.1) 03/25/18 07:25 Total Bilirubin 0.3 mg/dL (0.2-1.0) 03/25/18 07:25 AST 13 U/L (15-37) L 03/25/18 07:25 ALT 14 U/L (13-61) 03/25/18 07:25 Alkaline Phosphatase 100 U/L (45-117) 03/25/18 07:25 Total Protein 6.6 g/dl (6.4-8.2) 03/25/18 07:25 Albumin 3.0 g/dl (3.4-5.0) L 03/25/18 07:25 RPR Titer Nonreactive (NONREACTIVE) 03/25/18 07:25 lab noted Assessment: 03/26/18 10:25 withdrawal sx methadone maintenance 60 mg verified today chart review methadone active since 03/25/18 Plan: continue detox
[2018-03-26] MEDS: NICOTINE 14 MG/24 HOURS TOPICAL PATCH TD SCH (10:54)
[2018-03-26] MEDS: PRENATAL VITAMINS W/ FOLIC ACID TABLET (FP) PO SCH (10:54)
[2018-03-26] MEDS: chlordiazePOXIDE 5 MG CAPSULE PO SCH ×2 (18:13→22:31)
[2018-03-26] MEDS: THIAMINE HCL 100 MG TABLET (FP) PO SCH (22:31)
[2018-03-27] MEDS ORDERED: METHADONE HCL 40 MG DISPERSABLE TABLET ONE (04:59)
[2018-03-27] MEDS ORDERED: METHADONE HCL 10 MG TABLET ONE (04:59)
[2018-03-27] MEDS: METHADONE 40 MG, METHADONE 20 MG PO SCH (05:54)
[2018-03-27] MEDS: chlordiazePOXIDE 5 MG CAPSULE PO SCH ×2 (05:54→10:31)
[2018-03-27] MEDS: NICOTINE 14 MG/24 HOURS TOPICAL PATCH TD SCH (10:30)
[2018-03-27] MEDS: PRENATAL VITAMINS W/ FOLIC ACID TABLET (FP) PO SCH (10:30)
--- NOTE | 2018-03-27 13:41 | PN ---
BHS Progress Note (SOAP) Subjective: feeling better no tremor less sweat sleep better at night Objective: 03/27/18 13:41 Vital Signs Temperature 98.1 F 03/27/18 10:12 Pulse Rate 69 03/27/18 10:12 Respiratory Rate 18 03/27/18 10:12 Blood Pressure 97/67 03/27/18 10:12 O2 Sat by Pulse Oximetry (%) Laboratory Last Values WBC 3.9 K/mm3 (4.0-10.0) L 03/25/18 07:25 RBC 3.80 M/mm3 (3.60-5.2) 03/25/18 07:25 Hgb 11.6 GM/dL (10.7-15.3) 03/25/18 07:25 Hct 35.3 % (32.4-45.2) 03/25/18 07:25 MCV 92.9 fl (80-96) 03/25/18 07:25 MCH 30.5 pg (25.7-33.7) 03/25/18 07:25 MCHC 32.8 g/dl (32.0-36.0) 03/25/18 07:25 RDW 12.8 % (11.6-15.6) 03/25/18 07:25 Plt Count 189 K/MM3 (134-434) 03/25/18 07:25 MPV 8.7 fl (7.5-11.1) 03/25/18 07:25 Sodium 141 mmol/L (136-145) 03/25/18 07:25 Potassium 4.0 mmol/L (3.5-5.1) 03/25/18 07:25 Chloride 104 mmol/L (98-107) 03/25/18 07:25 Carbon Dioxide 29 mmol/L (21-32) 03/25/18 07:25 Anion Gap 8 MMOL/L (8-16) 03/25/18 07:25 BUN 15 mg/dL (7-18) 03/25/18 07:25 Creatinine 0.6 mg/dL (0.55-1.3) 03/25/18 07:25 Creat Clearance w eGFR > 60 (>60) 03/25/18 07:25 Random Glucose 87 mg/dL (74-106) 03/25/18 07:25 Calcium 8.6 mg/dL (8.5-10.1) 03/25/18 07:25 Total Bilirubin 0.3 mg/dL (0.2-1.0) 03/25/18 07:25 AST 13 U/L (15-37) L 03/25/18 07:25 ALT 14 U/L (13-61) 03/25/18 07:25 Alkaline Phosphatase 100 U/L (45-117) 03/25/18 07:25 Total Protein 6.6 g/dl (6.4-8.2) 03/25/18 07:25 Albumin 3.0 g/dl (3.4-5.0) L 03/25/18 07:25 RPR Titer Nonreactive (NONREACTIVE) 03/25/18 07:25 lab noted Assessment: 03/27/18 13:43 mild withdrawal sx Plan: medically supervised detox
[2018-03-27] MEDS: chlordiazePOXIDE HCL 10 MG CAPSULE PO SCH ×2 (17:19→22:16)
[2018-03-27] MEDS: THIAMINE HCL 100 MG TABLET (FP) PO SCH (22:16)
[2018-03-28] MEDS ORDERED: METHADONE HCL 40 MG DISPERSABLE TABLET ONE (05:57)
[2018-03-28] MEDS ORDERED: METHADONE HCL 10 MG TABLET ONE (05:57)
[2018-03-28] MEDS: METHADONE 40 MG, METHADONE 20 MG PO SCH (06:21)
[2018-03-28] MEDS: chlordiazePOXIDE HCL 10 MG CAPSULE PO SCH ×2 (06:21→11:01)
[2018-03-28 09:57] VITALS: BP 98/75; PULSE 79; TEMP 98.1
[2018-03-28 10:35] LABS: URINE APPEARANCE SLCLOUDY; URINE BILIRUBIN NEGATIVE (<2.0 mg/dL); URINE COLOR LTYELLOW; URINE GLUCOSE (UA) NEGATIVE (NEGATIVE); URINE KETONE NEGATIVE (NEGATIVE); URINE LEUK ESTERASE 1+ (NEGATIVE); URINE NITRITE NEGATIVE (NEGATIVE); URINE PROTEIN NEGATIVE (NEGATIVE); URINE UROBILINOGEN NEGATIVE mg/dL (0.2-1.0)
[2018-03-28 10:38] LABS: EPI CELLS RARE /HPF (FEW)
[2018-03-28] MEDS: NICOTINE 14 MG/24 HOURS TOPICAL PATCH TD SCH (11:00)
[2018-03-28] MEDS: PRENATAL VITAMINS W/ FOLIC ACID TABLET (FP) PO SCH (11:02)
== END 2018-03-28 11:20 | disposition other institution (70) | DRG 773 ==
LOC: YASAS 08:43 → Y6N 11:47
PROC: HZ2ZZZZ Detoxification Services for Substance Abuse Treatment (ICD-10-PCS; principal; 2018-03-24)
DX: F10.230 Alcohol dependence with withdrawal, uncomplicated (principal); F14.20 Cocaine dependence, uncomplicated; F11.20 Opioid dependence, uncomplicated; F17.210 Nicotine dependence, cigarettes, uncomplicated; F32.9 Major depressive disorder, single episode, unspecified; B18.2 Chronic viral hepatitis C; M54.5 Low back pain; D68.0 Von Willebrand disease; M17.12 Unilateral primary osteoarthritis, left knee
CPT/HCPCS: 36415; 80053; 81003; 81015; 85027; 86593; 93005; 93010

== ENCOUNTER 2018-03-28 11:20 | Inpatient (IN) | payer OTHER ==
[2018-03-28 12:01] VITALS: BMI 22.6
[2018-03-28] MEDS ORDERED: MAGNESIUM HYDROX 2400MG/30ML ORAL SUSPENSION 30 ML CUP PO PRN (12:35)
[2018-03-28] MEDS ORDERED: IBUPROFEN 400 MG TABLET (FP) PO PRN (12:35)
[2018-03-28] MEDS ORDERED: P-EPHED 60MG/TRIPROLIDI 2.5MG TABLET PO PRN (12:35)
[2018-03-28] MEDS ORDERED: ACETAMINOPHEN 325 MG TABLET (FP) PO PRN (12:35)
[2018-03-28] MEDS ORDERED: MAGNESIUM CITRATE 300 ML BOTTLE PO PRN (12:35)
[2018-03-28] MEDS ORDERED: MAG HYDROX/AL HYDROX/SIMETH 30 ML UNIT-DOSE CUP PO PRN (12:35)
[2018-03-28] MEDS ORDERED: guaiFENesin/D-METHORPHAN HB 10 ML UNIT-DOSE CUPS PO PRN (12:35)
[2018-03-28] MEDS ORDERED: hydrOXYzine PAMOATE 50 MG CAPSULE (FP) PO PRN (12:35)
[2018-03-28] MEDS ORDERED: MENTHOL/PHENOL 1 EACH UD MM PRN (12:35)
[2018-03-28] MEDS ORDERED: LOPERAMIDE HCL 2 MG CAPSULE PO PRN (12:35)
[2018-03-28] MEDS ORDERED: NICOTINE POLACRILEX 2 MG GUM BUC PRN (12:35)
--- NOTE | 2018-03-28 16:08 | HP ---
Psychiatrist Admission - Data Date of interview: 03/28/18 Admission source: [address] [place] [address] Identifying data: This is the second admission to [facility] inpatient rehwabilitation for this 47 yo single mother of 5 grown children,homeless, supported by [place]. Medical History: BA,Arthritis,Hep C,Von Willebrandt disease. Psychiatric History: Patient is poor historian.She was dx with Bipolar disorder many years ago.She reports a few suicidal attempts(cut her wrists?) a few years ago.She reports one psychiatric hospitalization about 10 years ago due to erratic behavior on the street.Patient is not able to recall details of that hospitalization..Patient has no psychiatric OPD care for a few months.Patient is willing to restart psychoiotropic medications:Seroquel,Neurontin.She is on MMTP(60 mg po daily). Physical/Sexual Abuse/Trauma History: not willing to discuss Vital Signs: Vital Signs - 24 hr 03/28/18 03/28/18 11:55 12:00 Temperature 97.4 F L 97.4 F L Pulse Rate 82 82 Respiratory 18 18 Rate Blood Pressure 91/64 91/64 Allergies/Adverse Reactions: Allergies Allergy/AdvReac Type Severity Reaction Status Date / Time egg [Egg] Allergy Mild Rash Verified 03/24/18 11:49 Concur with the findings of this exam: Yes - Substance Abuse/Tx History Hx Alcohol Use: Yes (drinking since 13 yo,2 bottles of Rum,beer) Hx Substance Use: Yes (marijuana since 13,heroin since 25 yo,PCP since 24 yo, cocaine since 18 yo) Substance Use Type: Alcohol, Cocaine, Heroin, Marijuana Hx Substance Use Treatment: Yes (comleted this program in 2017) Mental Status Exam - Mental Status Exam Alert and Oriented to: Time, Place, Person Cognitive Function: Grossly Intact Patient Appearance: Unkempt Mood: Sad, Anxious, Irritable Affect: Mood Congruent, Labile Patient Behavior: Cooperative Speech Pattern: Clear Voice Loudness: Normal Thought Process: Goal Oriented Thought Disorder: Not Present Hallucinations: Denies Suicidal Ideation: Denies Homicidal Ideation: Denies Insight/Judgement: Fair Sleep: Difficulty falling asleep Appetite: Fair Muscle strength/Tone: Normal Gait/Station: Normal Psychiatric Findings - Problem List ([place] 1, 2,3) (1) Alcohol dependence Current Visit: Yes Status: Chronic (2) Arthritis of left knee Current Visit: Yes Status: Chronic (3) Asthma Current Visit: Yes Status: Chronic Qualifiers: (4) Cannabis dependence Current Visit: Yes Status: Chronic (5) Cocaine dependence Current Visit: Yes Status: Chronic Qualifiers: (6) Hepatitis C Current Visit: Yes Status: Chronic Qualifiers: (7) Low back pain Current Visit: Yes Status: Chronic (8) Opioid dependence Current Visit: Yes Status: Chronic (9) Methadone maintenance therapy patient Current Visit: Yes Status: Chronic Comment: 60mg [facility] MMTP (10) Nicotine dependence Current Visit: Yes Status: Chronic Qualifiers: (11) Opioid dependence on agonist therapy Current Visit: Yes Status: Chronic (12) PCP dependence Current Visit: Yes Status: Chronic (13) Von Willebrand disease Current Visit: Yes Status: Chronic (14) Weight loss Current Visit: Yes Status: Chronic - Initial Treatment Plan Initial Treatment Plan: Seroquel 50 mg po hs,Neurontin 200 mg po tid and Benadryl 50 mg po hs.Will monitor progress.
[2018-03-28] MEDS ORDERED: diphenhydrAMINE HCL 50 MG CAPSULE PO PRN (16:16)
[2018-03-28] MEDS: THIAMINE HCL 100 MG TABLET (FP) PO SCH (21:08)
[2018-03-28] MEDS: GABAPENTIN 100 MG CAPSULE (FP) PO SCH (21:08)
[2018-03-28] MEDS: QUEtiapine FUMARATE 50 MG TABLET PO SCH (21:08)
[2018-03-29] MEDS ORDERED: METHADONE HCL 10 MG TABLET PO SCH (06:00)
[2018-03-29] MEDS ORDERED: METHADONE HCL 40 MG DISPERSABLE TABLET ONE (06:27)
[2018-03-29] MEDS ORDERED: METHADONE HCL 10 MG TABLET ONE (06:27)
[2018-03-29] MEDS: GABAPENTIN 100 MG CAPSULE (FP) PO SCH ×3 (06:53→21:28)
[2018-03-29] MEDS: METHADONE 40 MG, METHADONE 20 MG PO SCH (06:53)
[2018-03-29] MEDS: PRENATAL VITAMINS W/ FOLIC ACID TABLET (FP) PO SCH (09:58)
[2018-03-29] MEDS: NICOTINE 14 MG/24 HOURS TOPICAL PATCH TD SCH (09:58)
[2018-03-29] MEDS: QUEtiapine FUMARATE 50 MG TABLET PO SCH (21:28)
[2018-03-29] MEDS: THIAMINE HCL 100 MG TABLET (FP) PO SCH (21:28)
[2018-03-30] MEDS ORDERED: METHADONE HCL 40 MG DISPERSABLE TABLET ONE (05:45)
[2018-03-30] MEDS ORDERED: METHADONE HCL 10 MG TABLET ONE (05:45)
[2018-03-30] MEDS: METHADONE 40 MG, METHADONE 20 MG PO SCH (06:29)
[2018-03-30] MEDS: GABAPENTIN 100 MG CAPSULE (FP) PO SCH ×3 (06:29→21:28)
[2018-03-30] MEDS: PRENATAL VITAMINS W/ FOLIC ACID TABLET (FP) PO SCH (09:51)
[2018-03-30] MEDS: NICOTINE 14 MG/24 HOURS TOPICAL PATCH TD SCH (09:51)
[2018-03-30] MEDS: QUEtiapine FUMARATE 50 MG TABLET PO SCH (21:28)
[2018-03-30] MEDS: THIAMINE HCL 100 MG TABLET (FP) PO SCH (21:28)
[2018-03-30] MEDS: MELATONIN 5 MG TABLETS PO PRN (21:28)
[2018-03-31] MEDS ORDERED: METHADONE HCL 10 MG TABLET ONE (03:18)
[2018-03-31] MEDS ORDERED: METHADONE HCL 40 MG DISPERSABLE TABLET ONE (03:18)
[2018-03-31] MEDS: METHADONE 40 MG, METHADONE 20 MG PO SCH (06:45)
[2018-03-31] MEDS: GABAPENTIN 100 MG CAPSULE (FP) PO SCH ×3 (06:46→21:37)
[2018-03-31] MEDS: PRENATAL VITAMINS W/ FOLIC ACID TABLET (FP) PO SCH (09:50)
[2018-03-31] MEDS: NICOTINE 14 MG/24 HOURS TOPICAL PATCH TD SCH (09:50)
[2018-03-31] MEDS: QUEtiapine FUMARATE 50 MG TABLET PO SCH (21:37)
[2018-03-31] MEDS: THIAMINE HCL 100 MG TABLET (FP) PO SCH (21:37)
[2018-03-31] MEDS: MELATONIN 5 MG TABLETS PO PRN (21:37)
[2018-04-01] MEDS ORDERED: METHADONE HCL 10 MG TABLET ONE (03:19)
[2018-04-01] MEDS ORDERED: METHADONE HCL 40 MG DISPERSABLE TABLET ONE (03:19)
[2018-04-01] MEDS: GABAPENTIN 100 MG CAPSULE (FP) PO SCH ×3 (06:45→21:07)
[2018-04-01] MEDS: METHADONE 40 MG, METHADONE 20 MG PO SCH (06:45)
[2018-04-01] MEDS: NICOTINE 14 MG/24 HOURS TOPICAL PATCH TD SCH (10:16)
[2018-04-01] MEDS: PRENATAL VITAMINS W/ FOLIC ACID TABLET (FP) PO SCH (10:16)
[2018-04-01] MEDS: QUEtiapine FUMARATE 50 MG TABLET PO SCH (21:07)
[2018-04-01] MEDS: THIAMINE HCL 100 MG TABLET (FP) PO SCH (21:07)
[2018-04-01] MEDS: MELATONIN 5 MG TABLETS PO PRN (21:07)
[2018-04-02] MEDS ORDERED: METHADONE HCL 40 MG DISPERSABLE TABLET ONE (03:10)
[2018-04-02] MEDS ORDERED: METHADONE HCL 10 MG TABLET ONE (03:10)
[2018-04-02] MEDS: METHADONE 40 MG, METHADONE 20 MG PO SCH (06:25)
[2018-04-02] MEDS: GABAPENTIN 100 MG CAPSULE (FP) PO SCH ×3 (06:25→21:15)
[2018-04-02] MEDS: NICOTINE 14 MG/24 HOURS TOPICAL PATCH TD SCH (09:49)
[2018-04-02] MEDS: PRENATAL VITAMINS W/ FOLIC ACID TABLET (FP) PO SCH (09:50)
[2018-04-02] MEDS: THIAMINE HCL 100 MG TABLET (FP) PO SCH (21:15)
[2018-04-02] MEDS: QUEtiapine FUMARATE 50 MG TABLET PO SCH (21:15)
[2018-04-02] MEDS: MELATONIN 5 MG TABLETS PO PRN (21:16)
[2018-04-03] MEDS ORDERED: METHADONE HCL 40 MG DISPERSABLE TABLET ONE (05:56)
[2018-04-03] MEDS ORDERED: METHADONE HCL 10 MG TABLET ONE (05:56)
[2018-04-03] MEDS: METHADONE 40 MG, METHADONE 20 MG PO SCH (06:26)
[2018-04-03] MEDS: GABAPENTIN 100 MG CAPSULE (FP) PO SCH ×3 (06:26→21:24)
[2018-04-03] MEDS: NICOTINE 14 MG/24 HOURS TOPICAL PATCH TD SCH (09:59)
[2018-04-03] MEDS: PRENATAL VITAMINS W/ FOLIC ACID TABLET (FP) PO SCH (09:59)
[2018-04-03] MEDS: QUEtiapine FUMARATE 50 MG TABLET PO SCH (21:24)
[2018-04-03] MEDS: THIAMINE HCL 100 MG TABLET (FP) PO SCH (21:24)
[2018-04-04] MEDS ORDERED: METHADONE HCL 10 MG TABLET ONE (06:36)
[2018-04-04] MEDS ORDERED: METHADONE HCL 40 MG DISPERSABLE TABLET ONE (06:36)
[2018-04-04] MEDS: GABAPENTIN 100 MG CAPSULE (FP) PO SCH ×3 (06:36→21:37)
[2018-04-04] MEDS: METHADONE 40 MG, METHADONE 20 MG PO SCH (06:37)
[2018-04-04] MEDS: NICOTINE 14 MG/24 HOURS TOPICAL PATCH TD SCH (09:57)
[2018-04-04] MEDS: PRENATAL VITAMINS W/ FOLIC ACID TABLET (FP) PO SCH (09:57)
[2018-04-04] MEDS: QUEtiapine FUMARATE 50 MG TABLET PO SCH (21:37)
[2018-04-04] MEDS: THIAMINE HCL 100 MG TABLET (FP) PO SCH (21:37)
[2018-04-05] MEDS ORDERED: METHADONE HCL 10 MG TABLET ONE (03:26)
[2018-04-05] MEDS ORDERED: METHADONE HCL 40 MG DISPERSABLE TABLET ONE (03:27)
[2018-04-05] MEDS: METHADONE 40 MG, METHADONE 20 MG PO SCH (06:07)
[2018-04-05] MEDS: GABAPENTIN 100 MG CAPSULE (FP) PO SCH ×3 (06:08→21:15)
[2018-04-05] MEDS: NICOTINE 14 MG/24 HOURS TOPICAL PATCH TD SCH (09:54)
[2018-04-05] MEDS: PRENATAL VITAMINS W/ FOLIC ACID TABLET (FP) PO SCH (09:55)
[2018-04-05] MEDS: QUEtiapine FUMARATE 50 MG TABLET PO SCH (21:15)
[2018-04-05] MEDS: MELATONIN 5 MG TABLETS PO PRN (21:15)
[2018-04-05] MEDS: THIAMINE HCL 100 MG TABLET (FP) PO SCH (21:15)
[2018-04-06] MEDS ORDERED: METHADONE HCL 10 MG TABLET ONE (03:29)
[2018-04-06] MEDS ORDERED: METHADONE HCL 40 MG DISPERSABLE TABLET ONE (03:30)
[2018-04-06] MEDS: METHADONE 40 MG, METHADONE 20 MG PO SCH (06:34)
[2018-04-06] MEDS: GABAPENTIN 100 MG CAPSULE (FP) PO SCH ×3 (06:34→21:11)
[2018-04-06] MEDS: NICOTINE 14 MG/24 HOURS TOPICAL PATCH TD SCH (10:07)
[2018-04-06] MEDS: PRENATAL VITAMINS W/ FOLIC ACID TABLET (FP) PO SCH (10:07)
[2018-04-06] MEDS: QUEtiapine FUMARATE 50 MG TABLET PO SCH (21:11)
[2018-04-06] MEDS: THIAMINE HCL 100 MG TABLET (FP) PO SCH (21:11)
[2018-04-06] MEDS: MELATONIN 5 MG TABLETS PO PRN (21:12)
[2018-04-07] MEDS ORDERED: METHADONE HCL 10 MG TABLET ONE (06:03)
[2018-04-07] MEDS ORDERED: METHADONE HCL 40 MG DISPERSABLE TABLET ONE (06:03)
[2018-04-07] MEDS: GABAPENTIN 100 MG CAPSULE (FP) PO SCH ×3 (06:40→21:24)
[2018-04-07] MEDS: METHADONE 40 MG, METHADONE 20 MG PO SCH (06:40)
[2018-04-07] MEDS: PRENATAL VITAMINS W/ FOLIC ACID TABLET (FP) PO SCH (09:43)
[2018-04-07] MEDS: NICOTINE 14 MG/24 HOURS TOPICAL PATCH TD SCH (09:43)
[2018-04-07] MEDS: THIAMINE HCL 100 MG TABLET (FP) PO SCH (21:23)
[2018-04-07] MEDS: MELATONIN 5 MG TABLETS PO PRN (21:24)
[2018-04-07] MEDS: QUEtiapine FUMARATE 50 MG TABLET PO SCH (21:24)
[2018-04-08] MEDS ORDERED: METHADONE HCL 10 MG TABLET ONE (05:51)
[2018-04-08] MEDS ORDERED: METHADONE HCL 40 MG DISPERSABLE TABLET ONE (05:52)
[2018-04-08] MEDS: GABAPENTIN 100 MG CAPSULE (FP) PO SCH ×3 (06:23→21:17)
[2018-04-08] MEDS: METHADONE 40 MG, METHADONE 20 MG PO SCH (06:23)
[2018-04-08 07:11] VITALS: BP 104/69
[2018-04-08] MEDS: NICOTINE 14 MG/24 HOURS TOPICAL PATCH TD SCH (09:39)
[2018-04-08] MEDS: PRENATAL VITAMINS W/ FOLIC ACID TABLET (FP) PO SCH (09:39)
[2018-04-08] MEDS: THIAMINE HCL 100 MG TABLET (FP) PO SCH (21:17)
[2018-04-08] MEDS: QUEtiapine FUMARATE 50 MG TABLET PO SCH (21:17)
[2018-04-09] MEDS ORDERED: METHADONE HCL 40 MG DISPERSABLE TABLET ONE (05:41)
[2018-04-09] MEDS ORDERED: METHADONE HCL 10 MG TABLET ONE (05:41)
[2018-04-09] MEDS: GABAPENTIN 100 MG CAPSULE (FP) PO SCH ×2 (06:21→13:56)
[2018-04-09] MEDS: METHADONE 40 MG, METHADONE 20 MG PO SCH (06:21)
[2018-04-09 06:47] VITALS: PULSE 64; TEMP 97.9
[2018-04-09] MEDS: NICOTINE 14 MG/24 HOURS TOPICAL PATCH TD SCH (10:01)
[2018-04-09] MEDS: PRENATAL VITAMINS W/ FOLIC ACID TABLET (FP) PO SCH (10:01)
--- NOTE | 2018-04-09 16:38 | PN ---
Psychiatric Progress Note Vital Signs: Vital Signs Period Temp Pulse Resp BP Sys/Maldonado Pulse Ox Last 24 Hr 97.9 F 64 18-18 104/69 Date of Session: 04/09/18 Chief Complaint:: Discharge visit HPI: Alcohol,Opioid,Cocaine,Cannabis,PCP dependence comorbid with Bipolar disorder. ROS: Von Willebrandt disease,Arthritis,Hep C,BA. Current Medications: Active Medications Generic Name Dose Route Start Last Admin Trade Name Freq PRN Reason Stop Dose Admin Acetaminophen 650 mg 03/28/18 12:35 Tylenol - PO Q4H PRN FEVER Al Hydroxide/Mg Hydroxide 30 ml 03/28/18 12:35 Mylanta Oral Suspension - PO Q6H PRN DYSPEPSIA Diphenhydramine HCl 50 mg 03/28/18 16:16 Benadryl - PO HS PRN INSOMNIA Eucalyptus/Menthol/Phenol/Sorbitol 1 each 03/28/18 12:35 Cepastat Lozenge - MM Q4H PRN SORE THROAT Gabapentin 200 mg 03/28/18 22:00 04/09/18 13:56 Neurontin - PO 200 mg TID MARIA M Administration Guaifenesin 10 ml 03/28/18 12:35 Robitussin Dm - PO Q6H PRN COUGH Hydroxyzine Pamoate 50 mg 03/28/18 12:35 Vistaril - PO Q4H PRN AGITATION Ibuprofen 400 mg 03/28/18 12:35 Motrin - PO Q6H PRN Pain Level 4-6 Loperamide HCl 4 mg 03/28/18 12:35 Imodium - PO Q6H PRN DIARRHEA Magnesium Citrate 300 ml 03/28/18 12:35 Citroma - PO Q48H PRN CONSTIPATION Magnesium Hydroxide 30 ml 03/28/18 12:35 Milk Of Magnesia - PO DAILY PRN CONSTIPATION Melatonin 5 mg 03/28/18 22:00 04/07/18 21:24 Melatonin PO 5 mg HS PRN Administration INSOMNIA Methadone HCl 40 mg/ Methadone 60 mg 04/10/18 06:00 HCl 20 mg PO 04/17/18 05:59 DAILY@0600 MARIA M Nicotine 14 mg 03/29/18 10:00 04/09/18 10:01 Nicoderm Patch - TD 14 mg DAILY MARIA M Administration Nicotine Polacrilex 2 mg 03/28/18 12:35 Nicorette Gum - BUC Q2H PRN NICOTINE REPLACEMENT RX Multivit/Folic Acid/Iron 1 tab 03/29/18 10:00 04/09/18 10:01 Vitamins (Sjr) - PO 1 tab DAILY MARIA M Administration Pseudoephedrine/Triprolidine 1 combo 03/28/18 12:35 Actifed - PO TID PRN NASAL CONGESTION Quetiapine Fumarate 50 mg 03/28/18 22:00 04/08/18 21:17 Seroquel - PO 50 mg HS MARIA M Administration Thiamine HCl 100 mg 03/28/18 22:00 04/08/18 21:17 Vitamin B1 - PO 100 mg HS MARIA M Administration Current Side Effect: No Lab tests ordered: No Lab tests reviewed: Yes Provider note:: Patient completed her treatment(early discharge).She has partially met her treatment goals adn will continue to address her issueas on [facility].patient will continue her medications as per plan.Scripts for 30 days provided. Supportive therapy provided focusing on relapse prevention,support system,coping utilization as well as other resourses to maintin recovery has been discussed with the patient. Patient is stable for discharge today. Mental Status Exam - Mental Status Exam Alert and Oriented to: Time, Place, Person Cognitive Function: Grossly Intact Patient Appearance: Well Groomed Mood: Euthymic Affect: Mood Congruent, Labile Patient Behavior: Cooperative Speech Pattern: Clear Voice Loudness: Normal Thought Process: Goal Oriented Thought Disorder: Not Present Hallucinations: Denies Suicidal Ideation: Denies Homicidal Ideation: Denies Insight/Judgement: Fair Sleep: Fair Appetite: Good Muscle strength/Tone: Normal Gait/Station: Normal Psychiatric Treatment Plan - Problem List (1) Alcohol dependence Current Visit: Yes (2) Arthritis of left knee Current Visit: Yes (3) Asthma Current Visit: Yes Qualifiers: (4) Cannabis dependence Current Visit: Yes (5) Cocaine dependence Current Visit: Yes Qualifiers: (6) Hepatitis C Current Visit: Yes Qualifiers: (7) Low back pain Current Visit: Yes (8) Opioid dependence Current Visit: Yes (9) Methadone maintenance therapy patient Current Visit: Yes Comment: 60mg [facility] (10) Nicotine dependence Current Visit: Yes Qualifiers: (11) Opioid dependence on agonist therapy Current Visit: Yes (12) PCP dependence Current Visit: Yes (13) Von Willebrand disease Current Visit: Yes (14) Weight loss Current Visit: Yes
[2018-04-10] MEDS ORDERED: METHADONE 40 MG, METHADONE 20 MG PO SCH (06:00)
== END 2018-04-09 18:46 | disposition home or self-care (01) | DRG 772 ==
LOC: YASAS 11:20 → Y3E 11:39
PROVIDERS: ADMIT Psychiatry & Neurology Psychiatry; ATTEND Psychiatry & Neurology Psychiatry
PROC: HZ42ZZZ Group Counseling for Substance Abuse Treatment, Cognitive-Behavioral (ICD-10-PCS; principal; 2018-03-28)
DX: F10.20 Alcohol dependence, uncomplicated (principal); F14.20 Cocaine dependence, uncomplicated; F12.20 Cannabis dependence, uncomplicated; F16.20 Hallucinogen dependence, uncomplicated; F11.20 Opioid dependence, uncomplicated; F17.210 Nicotine dependence, cigarettes, uncomplicated; J45.909 Unspecified asthma, uncomplicated; M54.5 Low back pain; B18.2 Chronic viral hepatitis C; M17.12 Unilateral primary osteoarthritis, left knee; D68.0 Von Willebrand disease; R63.4 Abnormal weight loss; Z68.22 Body mass index [BMI] 22.0-22.9, adult